=== PATIENT | female | born 1995 | race Caucasian/White ===

== ENCOUNTER → 2017-05-20 15:00 | Emergency (ER) | payer OTHER ==
[2017-05-20 15:10] VITALS: BP 141/61
--- NOTE | 2017-05-20 17:37 | ED ---
Complex/Multi-Sys Presentation - HPI Summary HPI Summary: 22 female presents with complaints of feeling very tired/exhausted and feeling drained for the past couple weeks with worsening symptoms over the past couple of days. Patient denies any other symptoms. States she has seasonal allergies and is having some scratchy throat symptoms. Denies fever/chills and severe sore throat. States she has been falling asleep often, fell asleep in class today. Denies cough, chest pain, difficulty breathing and abdominal pain. She does admit to having a history of anemia. States her bathroom at home has increased the amount of moisture in it and the fan doesn't work well was concerned of possible mold. However no other symptoms and does not know if there is mold in her house or not. No PMHx besides hypothyroid that she is not currently medicated for. Admits to a lot of stress with juggling school and her child without her mother. No urinary or genitalia complaints. - History Of Current Complaint Chief Complaint: EDGeneral Hx Obtained From: Patient Onset/Duration: Sudden Onset, Lasting Weeks Timing: Constant Severity Currently: Mild Severity Initially: Mild Aggravating Factor(s): none Alleviating Factor(s): none Associated Signs And Symptoms: Negative: SOB, Cough, Wheezing, Chest Pain, Nausea, Vomiting, Abdominal Pain, Back Pain, Recent Trauma, Remote Trauma - Allergies/Home Medications Allergies/Adverse Reactions: Allergies Allergy/AdvReac Type Severity Reaction Status Date / Time No Known Drug Allergy Allergy Unknown Verified 05/20/17 15:53 Reaction Details PMH/Surg Hx/FS Hx/Imm Hx Endocrine/Hematology History: Reports: Hx Thyroid Disease, Hx Anemia Cardiovascular History: Denies: Hx Hypertension Respiratory History: Denies: Hx Asthma - Surgical History Surgery Procedure, Year, and Place: none - Immunization History Immunizations Up to Date: Yes Infectious Disease History: No Infectious Disease History: Denies: Traveled Outside the [place] in Last 30 Days - Family History Known Family History: Positive: None - Social History Alcohol Use: None Substance Use Type: Reports: None Smoking Status (MU): Unknown if Ever Smoked Review of Systems Constitutional: Negative Eyes: Negative ENT: Negative Cardiovascular: Negative Respiratory: Negative Gastrointestinal: Negative Musculoskeletal: Negative Skin: Negative Neurological: Negative Positive: Other - fatigue All Other Systems Reviewed And Are Negative: Yes Physical Exam Triage Information Reviewed: Yes Vital Signs On Initial Exam: Initial Vitals Temp Pulse Resp BP Pulse Ox 98.5 F 79 20 141/61 96 05/20/17 15:06 05/20/17 15:06 05/20/17 15:06 05/20/17 15:06 05/20/17 15:06 Vital Signs Reviewed: Yes Appearance: Positive: Well-Appearing, No Pain Distress, Well-Nourished Skin: Positive: Warm, Skin Color Reflects Adequate Perfusion, Dry. Negative: Numb, Cyanosis @, Diaphoretic Head/Face: Positive: Normal Head/Face Inspection Eyes: Positive: Normal, Conjunctiva Clear ENT: Positive: Normal ENT inspection, Hearing grossly normal, Pharynx normal, Pharyngeal erythema, TMs normal. Negative: Tonsillar swelling, Tonsillar exudate, Trismus, Muffled/hoarse voice, Other Neck: Positive: Supple, Nontender, No Lymphadenopathy Respiratory/Lung Sounds: Positive: Clear to Auscultation, Breath Sounds Present. Negative: Rales, Rhonchi, Wheezes Cardiovascular: Positive: Normal, RRR, Pulses are Symmetrical in both Upper and Lower Extremities. Negative: Murmur, Rub Abdomen Description: Positive: Nontender, No Organomegaly, Soft. Negative: Bruit, CVA Tenderness (R), CVA Tenderness (L), Distended, Guarding, McBurney's Point Tenderness, Splenomegaly Bowel Sounds: Positive: Present Musculoskeletal: Positive: Normal, Strength/ROM Intact Neurological: Positive: Normal, Sensory/Motor Intact, Alert, Oriented to Person Place, Time, CN Intact II-III, Reflexes Intact, NV Bundle Intact Distally, Normal Gait Psychiatric: Positive: Affect/Mood Appropriate AVPU Assessment: Alert - Gustavo Coma Scale Best Eye Response: 4 - Spontaneous Best Motor Response: 6 - Obeys Commands Best Verbal Response: 5 - Oriented Diagnostics - Vital Signs Vital Signs Temp Pulse Resp BP Pulse Ox 05/20/17 15:09 98.5 F 102 20 141/61 97 05/20/17 15:06 98.5 F 79 20 141/61 96 - Laboratory Result Diagrams: 05/20/17 17:29 05/20/17 17:29 Lab Statement: Any lab studies that have been ordered have been reviewed, and results considered in the medical decision making process. Complex Multi-Symp Course/Dx Course Of Treatment: CBC CMP and mono ordered to rule out mono and anemia. very slightly anemic. monospot was positive. will await EBV results. patient is not aware if she has had mono in the past. fluids, rest and follow up. tylenol/ ibuprofen pain. wait for acute mono infection results. aware of worsening signs and symptoms. also told to take iron pill every other day. - Diagnoses Differential Diagnoses/HQI/PQRI: Other - mono, anemia, depression Provider Diagnoses: Fatigue Discharge - Discharge Plan Condition: Stable Disposition: HOME Patient Education Materials: Fatigue (ED) Referrals: Non Staff,Doctor [Primary Care Provider] - Additional Instructions: Follow up with primary care provider for further work up and evaluation if symptoms persist. Drink plenty of fluids and get plenty of rest. If new symptoms appear or symptoms persist please return or seek medical attention promptly.
[2017-05-20 17:51] LABS: Hematocrit 36 % (35-47); Hemoglobin 11.1 g/dl (12.0-16.0); Mean Corpuscular HGB Conc 31 g/dl (31-36); Mean Corpuscular Hemoglobin 22 pg (27-31); Mean Corpuscular Volume 70 fL (80-97); Mean Platelet Volume 9 um3 (7.4-10.4); Red Blood Count 5.12 10^6/ul (4.0-5.4); Red Cell Distribution Width 17 % (10.5-15); White Blood Count 9.1 10^3/ul (3.5-10.8)
[2017-05-20 17:53] LABS: Comments Flag Yes
[2017-05-20 17:54] LABS: Add Diff/Slide Review? Slide Review Added
[2017-05-20 18:01] LABS: Mono Internal Control QC Line Present
[2017-05-20 18:13] LABS: Albumin 4.1 g/dL (3.2-5.2); BUN/Creatinine Ratio 11.1 (8-20); Calcium 9.5 mg/dL (8.6-10.3); EGFR Non-African American 99.5 (>60); Globulin 3.8 g/dL (2-4); Potassium 3.8 mmol/L (3.5-5.0); Total Bilirubin 0.3 mg/dL (0.2-1.0); Total Protein 7.9 g/dL (6.4-8.9)
== END | disposition home or self-care (01) ==
LOC: ED 15:00
DX: R53.83 Other fatigue (principal); E03.9 Hypothyroidism, unspecified
CPT/HCPCS: 36415; 80053; 85025; 86308; 86663; 99282

== ENCOUNTER 2017-07-21 10:27 | Emergency (ER) | payer OTHER, MEDICAID ==
[2017-07-21] MEDS ORDERED: Ondansetron INJ* 2 MG/ML VIAL IV ONE (11:13)
[2017-07-21] MEDS ORDERED: Ketorolac INJ* 30 MG/ML 1 ML VIAL IV ONE (11:13)
[2017-07-21] MEDS: NS 0.9% 1000 ML* 2,000 ML IV ONE (11:32)
[2017-07-21 11:49] LABS: Hematocrit 37 % (35-47); Hemoglobin 11.4 g/dl (12.0-16.0); Mean Corpuscular HGB Conc 31 g/dl (31-36); Mean Corpuscular Hemoglobin 21 pg (27-31); Mean Platelet Volume 8 um3 (7.4-10.4); Red Blood Count 5.36 10^6/ul (4.0-5.4); Red Cell Distribution Width 17 % (10.5-15)
[2017-07-21 11:51] LABS: Comments Flag Yes; Mean Corpuscular Volume 69 fL (80-97)
[2017-07-21 12:00] LABS: Urine Bilirubin Negative (Negative); Urine Glucose Negative (Negative); Urine Nitrite Negative (Negative)
[2017-07-21 12:01] LABS: Albumin 4.3 g/dL (3.2-5.2); BUN/Creatinine Ratio 10.3 (8-20); Calcium 9.3 mg/dL (8.6-10.3); EGFR African American 136.7 (>60); EGFR Non-African American 106.3 (>60); Globulin 3.5 g/dL (2-4); Potassium 3.7 mmol/L (3.5-5.0); Total Protein 7.8 g/dL (6.4-8.9)
[2017-07-21 12:02] LABS: C Reactive Protein 10.96 mg/L (< 5.00); Total Bilirubin 0.5 mg/dL (0.2-1.0)
[2017-07-21 12:06] LABS: Urine Bacteria Absent (Absent)
[2017-07-21] MEDS ORDERED: Lidocaine 2% VISCOUS* 15 ML UDC PO ONE (12:20)
[2017-07-21] MEDS ORDERED: Al Hydrox/Mg Hydrox/Simet LIQ* 30 ML UDC PO ONE (12:20)
[2017-07-21] MEDS ORDERED: Pantoprazole IV* 40 MG IV ONE (12:21)
--- NOTE | 2017-07-21 12:46 | RAD ---
Indication: Pelvic pain. Real-time sonography of the pelvis was performed utilizing endovaginal technique. The uterus measures 7.4 x 3.3 x 4.3 cm. Endometrial echo measures 5 mm. Right ovary measures 3.3 x 2.4 x 1.9 cm. Left ovary measures 2.7 x 1.9 x 1.8 cm. Doppler interrogation demonstrates flow in both ovaries. IMPRESSION: Unremarkable pelvic ultrasound.
--- NOTE | 2017-07-21 12:46 | RAD ---
Indication: Right lower quadrant pain. Graded compression sonography of the right lower quadrant was performed utilizing a high frequency linear transducer. There is no evidence of tubular fluid-filled structure to suggest appendicitis. Normal appendix is not visualized. IMPRESSION: Appendix not visualized.
--- NOTE | 2017-07-21 12:48 | RAD ---
Indication: Right flank pain. Real-time sonography of the right kidney was performed. The right kidney measures 9.6 x 3.5 x 4.2 cm. There is mild fullness of the right renal collecting system. Bilateral ureteral jets are identified. IMPRESSION: Mild hydronephrosis of the right kidney. The right ureteral jet is however identified.
--- NOTE | 2017-07-21 13:53 | RAD ---
CLINICAL HISTORY: Right flank pain, mild hydronephrosis on ultrasound COMPARISON: Ultrasound dated July 21, 2017 TECHNIQUE: Multiple contiguous axial CT scans were obtained of the abdomen and pelvis, without intravenous contrast enhancement. Coronal and sagittal multiplanar reformations are submitted for review. Oral contrast was not administered. FINDINGS: The study is limited by the lack of intravenous contrast. This limits evaluation of the solid organs and vasculature. LUNG BASES: The lung bases are clear. LIVER: The liver is normal in shape, size, contour, and attenuation. BILE DUCTS: There is no intrahepatic or extrahepatic biliary dilatation. GALLBLADDER: The gallbladder is normal, without pericholecystic inflammatory change. PANCREAS: The pancreas is normal, without mass or ductal dilatation. SPLEEN: Normal in size and appearance. UPPER GI TRACT: Evaluation of the gastrointestinal tract is limited by incomplete gastric distention. The upper GI tract is unremarkable. SMALL BOWEL AND MESENTERY: The small bowel is normal in contour, course, and caliber. There is no obstruction or dilatation. COLON: The colon is normal in contour, course, caliber. There is no pericolonic inflammatory change. There is a tubular, vermiform, hollow viscus that is blind ending, and originates from the cecum, consistent with a normal appendix. There is no periappendiceal inflammatory change. ADRENALS: Normal bilaterally. KIDNEYS: There is mild to moderate right pelviectasis and hydroureter, with a 0.5 cm calculus of the proximal right ureter. There are nonspecific left renal calyceal stones. BLADDER: The bladder is smooth in contour. PELVIC ORGANS: The uterus and adnexa are grossly normal for technique. AORTA: The aorta is normal. IVC: Unremarkable LYMPH NODES: There is no lymphadenopathy by size criteria. ABDOMINAL WALL: There is no evidence for abdominal wall hernia. BONES AND SOFT TISSUES: The bones and soft tissues are unremarkable. OTHER: None IMPRESSION: BILATERAL NEPHROLITHIASIS, INCLUDING A 0.5 CM PROXIMAL RIGHT URETERAL CALCULUS WITH MILD TO MODERATE HYDRONEPHROSIS
--- NOTE | 2017-07-21 15:50 | ED ---
Aleksandra Zhou Alfonso, scribed for Celina Brooks MD on 07/21/17 at 1044 . Abdominal Pain/Female - HPI Summary HPI Summary: This patient is a 22 year old F presenting to [facility] with a chief complaint of right sided abdominal pain since earlier this morning. The pain radiate to her back. The patient rates the pain 9/10 in severity. Symptoms aggravated by deep breaths. Symptoms alleviated by nothing. Patient reports diaphoresis, and nausea. Patient denies dysuria, fever, and vomiting. She began a vegan diet two weeks ago. She denies abdominal PSHx. A4. Next menstrual cycle expected in 9 days. PMHx includes ovarian cyst. - History of Current Complaint Chief Complaint: EDAbdPain Stated Complaint: LOWER RT ABD PAIN Time Seen by Provider: 07/21/17 10:39 Hx Obtained From: Patient Onset/Duration: Sudden Onset, Lasting Hours, Still Present Timing: Constant Severity Initially: Severe Severity Currently: Severe Pain Intensity: 9 Pain Scale Used: 0-10 Numeric Location: Other - right sided Radiates: Yes Radiates to: Back Aggravating Factor(s): Deep Breaths Alleviating Factor(s): Nothing Associated Signs and Symptoms: Positive: Other: - diaphoresis, and nausea. Patient denies dysuria, fever, and vomiting Allergies/Adverse Reactions: Allergies Allergy/AdvReac Type Severity Reaction Status Date / Time No Known Drug Allergy Allergy Unknown Verified 05/20/17 15:53 Reaction Details PMH/Surg Hx/FS Hx/Imm Hx Endocrine/Hematology History: Reports: Hx Thyroid Disease, Hx Anemia Cardiovascular History: Denies: Hx Hypertension Respiratory History: Denies: Hx Asthma History: Reports: Other Problems/Disorders - ovarian cyst - Surgical History Surgery Procedure, Year, and Place: none Infectious Disease History: No Infectious Disease History: Denies: Traveled Outside the [place] in Last 30 Days - Family History Known Family History: Positive: Other - Ovarian cyst - Social History Occupation: Student - [employer] Alcohol Use: None Substance Use Type: Reports: None Smoking Status (MU): Unknown if Ever Smoked Review of Systems Positive: Skin Diaphoresis. Negative: Fever Positive: Abdominal Pain, Nausea. Negative: Vomiting Negative: dysuria All Other Systems Reviewed And Are Negative: Yes Physical Exam Triage Information Reviewed: Yes Vital Signs On Initial Exam: Initial Vitals Temp Pulse Resp BP Pulse Ox 97.6 F 81 20 144/84 99 07/21/17 10:30 07/21/17 10:30 07/21/17 10:30 07/21/17 10:30 07/21/17 10:30 Vital Signs Reviewed: Yes Appearance: Positive: Well-Appearing, No Pain Distress Skin: Positive: Warm, Skin Color Reflects Adequate Perfusion, Dry Eyes: Positive: EOMI, DEB ENT: Positive: Pharynx normal, TMs normal Neck: Positive: Supple, Nontender Respiratory/Lung Sounds: Positive: Clear to Auscultation, Breath Sounds Present. Negative: Rales, Rhonchi, Wheezes Cardiovascular: Positive: RRR, Other - No gallop. Negative: Murmur, Rub Abdomen Description: Positive: Soft, Other: - Right flank tenderness. Right suprapubic tenderness. No rebound.. Negative: Distended, Guarding Bowel Sounds: Positive: Present Musculoskeletal: Positive: Strength/ROM Intact. Negative: Edema Left, Edema Right Neurological: Positive: Sensory/Motor Intact, Alert, Oriented to Person Place, Time, CN Intact II-III - 2-12 Psychiatric: Positive: Affect/Mood Appropriate Diagnostics - Vital Signs Vital Signs Temp Pulse Resp BP Pulse Ox 07/21/17 10:30 97.6 F 81 20 144/84 99 - Laboratory Lab Results: Lab Results 07/21/17 07/21/17 07/21/17 Range/Units 11:22 11:35 11:35 WBC 6.0 (3.5-10.8) 10^3/ul RBC 5.36 (4.0-5.4) 10^6/ul Hgb 11.4 L (12.0-16.0) g/dl Hct 37 (35-47) % MCV 69 L (80-97) fL MCH 21 L (27-31) pg MCHC 31 (31-36) g/dl RDW 17 H (10.5-15) % Plt Count 305 (150-450) 10^3/ul MPV 8 (7.4-10.4) um3 Neut % (Auto) 63.5 (38-83) % Lymph % (Auto) 28.0 (25-47) % Lewis % (Auto) 7.4 (1-9) % Eos % (Auto) 0.9 (0-6) % Baso % (Auto) 0.2 (0-2) % Absolute Neuts (auto) 3.8 (1.5-7.7) 10^3/ul Absolute Lymphs (auto) 1.7 (1.0-4.8) 10^3/ul Absolute Monos (auto) 0.4 (0-0.8) 10^3/ul Absolute Eos (auto) 0.1 (0-0.6) 10^3/ul Absolute Basos (auto) 0 (0-0.2) 10^3/ul Absolute Nucleated RBC 0.01 10^3/ul Nucleated RBC % 0.1 Sodium 139 (133-145) mmol/L Potassium 3.7 (3.5-5.0) mmol/L Chloride 104 (101-111) mmol/L Carbon Dioxide 29 (22-32) mmol/L Anion Gap 6 (2-11) mmol/L BUN 7 (6-24) mg/dL Creatinine 0.68 (0.51-0.95) mg/dL Est GFR ( Amer) 136.7 (>60) Est GFR (Non-Af Amer) 106.3 (>60) BUN/Creatinine Ratio 10.3 (8-20) Glucose 86 (70-100) mg/dL Calcium 9.3 (8.6-10.3) mg/dL Total Bilirubin 0.50 (0.2-1.0) mg/dL AST 21 (13-39) U/L ALT 26 (7-52) U/L Alkaline Phosphatase 104 (34-104) U/L C-Reactive Protein 10.96 H (< 5.00) mg/L Total Protein 7.8 (6.4-8.9) g/dL Albumin 4.3 (3.2-5.2) g/dL Globulin 3.5 (2-4) g/dL Albumin/Globulin Ratio 1.2 (1-3) Beta HCG, Quant 0.65 mIU/mL Urine Color [place] Urine Appearance Cloudy Urine pH 5 (5-9) Ur Specific [place] 1.025 (1.010-1.030) Urine Protein 1+(30 mg/dl) H (Negative) Urine Ketones Negative (Negative) Urine Blood 3+ H (Negative) Urine Nitrate Negative (Negative) Urine Bilirubin Negative (Negative) Urine Urobilinogen Negative (Negative) Ur Leukocyte Esterase 2+ H (Negative) Urine WBC (Auto) 2+(11-20/hpf) H (Absent) Urine RBC (Auto) 3+(>10/hpf) H (Absent) Ur Squamous Epith Cells Present H (Absent) Urine Bacteria Absent (Absent) Urine Glucose Negative (Negative) Result Diagrams: 07/21/17 11:35 07/21/17 11:35 Lab Statement: Any lab studies that have been ordered have been reviewed, and results considered in the medical decision making process. - CT A/P CT Interpretation Completed By: Radiologist - BILATERAL NEPHROLITHIASIS, INCLUDING A 0.5 CM PROXIMAL RIGHT URETERAL CALCULUS WITH MILD TO MODERATE HYDRONEPHROSIS. ED physician has reviewed this radiology report and agrees. - Additional Comments Diagnostic Additional Comments: Renal US reveals, per radiologist, Mild hydronephrosis of the right kidney. The right ureteral jet is however identified. ED physician has reviewed this radiology report and agrees. Transvaginal US reveals, per radiologist, Unremarkable pelvic ultrasound. ED physician has reviewed this radiology report and agrees. Abdomen US reveals, per radiologist, Appendix not visualized. ED physician has reviewed this radiology report and agrees. Abdominal Pain Fem Course/Dx - Course Course Of Treatment: 22 yo female with right suprapubic and flank pain with 5mm ureteral stone and urine suspicious for uti. ultrasound does show ureteral jets. Pt given 2gms of ceftriaxone and case discussed with Dr. Moreira, pt sent home with cipro, flomax, naprosyn and a very short course of narcotics. She will call office to make an appt for early next week and knows to return for fevers inability to keep meds down - Diagnoses Provider Diagnoses: Right ureteral stone, UTI (urinary tract infection) Discharge - Discharge Plan Condition: Stable Disposition: HOME Prescriptions: Ciprofloxacin TAB* [Cipro 500 MG TAB*] 500 mg PO BID #14 tab HYDROcodone/ACETAMIN 5-325 MG* [[place] 5-325 TAB*] 1 tab PO Q8H PRN #9 tab MDD 3 PRN Reason: Pain Naproxen [Naprosyn 500 mg] 500 mg PO BID PRN #14 tab PRN Reason: Pain Tamsulosin CAP* [Flomax CAP*] 0.4 mg PO DAILY #7 cap Referrals: Moraima Crowe MD [Primary Care Provider] - 3 Days The documentation as recorded by the Aleksandra hardin Alfonso accurately reflects the service I personally performed and the decisions made by me, Celina Brooks MD.
[2017-07-21 16:05] VITALS: BP 105/70
--- NOTE | 2017-07-23 09:11 | ED ---
Progress - Progress Note Progress Note: Pt's visit note indicates: "22 yo female with right suprapubic and flank pain with 5mm ureteral stone and urine suspicious for uti. ultrasound does show ureteral jets. Pt given 2gms of ceftriaxone and case discussed with Dr. Moreira , pt sent home with cipro, flomax, naprosyn and a very short course of narcotics. She will call office to make an appt for early next week and knows to return for fevers inability to keep meds down" Urine cx reveals no growth. Given the finding of uretral stone, location of pain and consult with Dr. Moreira, will have pt continue cipro. Will fwd results to Dr. Moreira. salma Rubio clerk, aware. Course/Dx - Course Course Of Treatment: 22 yo female with right suprapubic and flank pain with 5mm ureteral stone and urine suspicious for uti. ultrasound does show ureteral jets. Pt given 2gms of ceftriaxone and case discussed with Dr. Moreira, pt sent home with cipro, flomax, naprosyn and a very short course of narcotics. She will call office to make an appt for early next week and knows to return for fevers inability to keep meds down - Diagnoses Provider Diagnoses: Right ureteral stone, UTI (urinary tract infection)
== END 2017-07-21 16:04 | disposition home or self-care (01) ==
LOC: ED 10:27
DX: N20.1 Calculus of ureter (principal); N39.0 Urinary tract infection, site not specified; R10.84 Generalized abdominal pain
CPT/HCPCS: 36415; 74176; 76705; 76775; 76830; 80053; 81003; 81015; 84702; 85025; 86140; 87086; 96374; 96375; 99283; J0696; J1885; J2405

== ENCOUNTER 2017-07-22 10:50 | Emergency (ER) | payer OTHER, MEDICAID ==
[2017-07-22 11:24] VITALS: BP 104/82
[2017-07-22 11:52] LABS: Hematocrit 33 % (35-47); Hemoglobin 10.4 g/dl (12.0-16.0); Mean Corpuscular HGB Conc 32 g/dl (31-36); Mean Corpuscular Hemoglobin 22 pg (27-31); Mean Platelet Volume 8 um3 (7.4-10.4); Red Blood Count 4.75 10^6/ul (4.0-5.4); Red Cell Distribution Width 17 % (10.5-15)
[2017-07-22 11:53] LABS: Comments Flag Yes
[2017-07-22 11:54] LABS: Mean Corpuscular Volume 69 fL (80-97)
[2017-07-22] MEDS ORDERED: Ketorolac INJ* 30 MG/ML 1 ML VIAL IV PUSH ONE (12:05)
[2017-07-22 12:10] LABS: Anion Gap 5 mmol/L (2-11); BUN/Creatinine Ratio 12.8 (8-20); Blood Urea Nitrogen 10 mg/dL (6-24); CO2 Carbon Dioxide 25 mmol/L (22-32); Calcium 8.5 mg/dL (8.6-10.3); Chloride 108 mmol/L (101-111); EGFR African American 116.7 (>60); EGFR Non-African American 90.7 (>60); Glucose 93 mg/dL (70-100); Potassium 3.8 mmol/L (3.5-5.0); Sodium 138 mmol/L (133-145)
[2017-07-22 12:40] LABS: Urine Bilirubin Negative (Negative); Urine Glucose Negative (Negative); Urine Nitrite Negative (Negative)
[2017-07-22 12:53] LABS: Urine Bacteria Absent (Absent)
[2017-07-22] MEDS ORDERED: cefTRIAXone(*) 1 GM in NS 0.9% 50 ML* 50 ML IVPB ONE (13:17)
--- NOTE | 2017-07-22 14:36 | RAD ---
Indication: Flank pain. Proximal RIGHT ureteral stone on July 21, 2017 CT. Comparison: July 21, 2017 CT. Technique: Ultrasound kidneys and urinary bladder. Report: 9.9 x 4.6 x 5.8 cm RIGHT kidney with normal cortical echogenicity demonstrates moderate pelvicaliectasis. No conspicuous RIGHT intrarenal collecting system stones or focal renal lesions. Negative for perinephric fluid. 10.7 x 4.3 x 4.4 cm LEFT kidney demonstrates normal cortical echogenicity and a 0.5 cm mid pole calyceal stone. Negative for LEFT hydronephrosis. Negative for focal LEFT renal lesions. 220 mm estimated prevoid urinary bladder volume. Upper normal 3.6 mm bladder wall. No focal bladder lesions or stones evident. Bladder contents are grossly anechoic. 25 mL estimated post void residual volume. Bilateral ureteral jets documented. 0.5 cm shadowing stone visualized at the far distal RIGHT ureter. IMPRESSION: 1. Moderate RIGHT hydronephrosis is traced to a 0.5 cm shadowing stone at the far distal RIGHT ureter with significant distal propagation compared with the CT of one day prior. 2. Nonobstructing 0.5 cm stone midpole LEFT kidney. 3. Bilateral ureteral jets documented. 4. 25 mL postvoid residual volume in the urinary bladder.
--- NOTE | 2017-07-24 08:57 | PN ---
Progress Note - Progress Note Date of Service: 07/22/17 Note: No growth of clinically significant organisms on urine culture. No further action required at this time.
--- NOTE | 2017-07-30 15:07 | ED ---
Aleksandra Zhou Alfonso scribed for Bautista Hughes MD on 07/22/17 at 1306 . Abdominal Pain/Female - HPI Summary HPI Summary: This patient is a 22 year old F presenting to [facility] with a chief complaint of right flank pain worse since yesterday. The CC is described as pressured and aching. The patient rates the pain 7/10 in severity. Symptoms aggravated by urination, deep breaths, and position. Symptoms alleviated by nothing. Patient reports dysuria and urinary retention. Patient denies vomiting. She began a vegan diet two weeks ago. She denies abdominal PSHx. A4. Next menstrual cycle expected in 8 days. PMHx includes ovarian cyst. - History of Current Complaint Chief Complaint: EDUrogenitalProblems Stated Complaint: UNABLE TO URINATE Time Seen by Provider: 07/22/17 11:42 Hx Obtained From: Patient Onset/Duration: Sudden Onset, Worse Since - yesterday Timing: Constant Severity Initially: Severe Severity Currently: Severe Pain Intensity: 7 Pain Scale Used: 0-10 Numeric Location: Flank - R Aggravating Factor(s): Other: - urination, deep breaths, and position. Alleviating Factor(s): Nothing Associated Signs and Symptoms: Positive: Other: - dysuria and urinary retention. Patient denies vomiting. Allergies/Adverse Reactions: Allergies Allergy/AdvReac Type Severity Reaction Status Date / Time Milk-related Compounds Allergy Constipatio Verified 07/22/17 11:20 n squask Allergy Anaphylatic Uncoded 07/22/17 11:21 Shock PMH/Surg Hx/FS Hx/Imm Hx Endocrine/Hematology History: Reports: Hx Thyroid Disease, Hx Anemia Cardiovascular History: Denies: Hx Hypertension Respiratory History: Denies: Hx Asthma History: Reports: Other Problems/Disorders - ovarian cyst - Surgical History Surgery Procedure, Year, and Place: none Infectious Disease History: Yes Infectious Disease History: Denies: Traveled Outside the [place] in Last 30 Days - Family History Known Family History: Positive: None, Other - Ovarian cyst - Social History Alcohol Use: None Substance Use Type: Reports: None Smoking Status (MU): Unknown if Ever Smoked Review of Systems Negative: Fever, Chills Negative: Erythema Negative: Sore Throat Negative: Chest Pain Negative: Shortness Of Breath, Cough Positive: Abdominal Pain - right flank. Negative: Vomiting, Nausea Positive: dysuria, other - Urinary retention. Negative: hematuria Negative: Myalgia, Edema Negative: Rash Neurological: Other - Negative dizziness All Other Systems Reviewed And Are Negative: Yes Physical Exam Triage Information Reviewed: Yes Vital Signs On Initial Exam: Initial Vitals Temp Pulse Resp BP Pulse Ox 97.5 F 86 20 104/82 99 07/22/17 11:21 07/22/17 11:21 07/22/17 11:21 07/22/17 11:21 07/22/17 11:21 Vital Signs Reviewed: Yes Appearance: Positive: Well-Appearing, No Pain Distress Skin: Positive: Warm, Dry Head/Face: Positive: Normal Head/Face Inspection Eyes: Positive: Conjunctiva Clear Neck: Positive: Other: - Musculoskeletal ROM normal neck. (-) JVD, (-) Stridor, (-) Tracheal deviation, (-) Cervical adenopathy Respiratory/Lung Sounds: Positive: Other - Effort normal. (-) Respiratory distress, (-) Wheezes, (-) Rales Cardiovascular: Positive: RRR, Other - Heart sounds normal; Intact distal pulses ; The pedal pulses are 2+ and symmetric. Radial pulses are 2+ and symmetric. (- ) Murmur Abdomen Description: Positive: Soft, Other: - Right CVA tenderness. No rebound. Negative: Distended, Guarding Musculoskeletal: Negative: Edema Left, Edema Right Neurological: Positive: Alert, Oriented to Person Place, Time Psychiatric: Positive: Affect/Mood Appropriate - [place] Coma Scale Coma Scale Total: 15 Diagnostics - Vital Signs Vital Signs Temp Pulse Resp BP Pulse Ox 07/22/17 11:21 97.5 F 86 20 104/82 99 - Laboratory Lab Results: Lab Results 07/22/17 07/22/17 07/22/17 Range/Units 11:39 11:39 11:45 WBC 6.0 (3.5-10.8) 10^3/ul RBC 4.75 (4.0-5.4) 10^6/ul Hgb 10.4 L (12.0-16.0) g/dl Hct 33 L (35-47) % MCV 69 L (80-97) fL MCH 22 L (27-31) pg MCHC 32 (31-36) g/dl RDW 17 H (10.5-15) % Plt Count 269 (150-450) 10^3/ul MPV 8 (7.4-10.4) um3 Neut % (Auto) 66.3 (38-83) % Lymph % (Auto) 25.8 (25-47) % [place] % (Auto) 6.6 (1-9) % Eos % (Auto) 0.9 (0-6) % Baso % (Auto) 0.4 (0-2) % Absolute Neuts (auto) 4.0 (1.5-7.7) 10^3/ul Absolute Lymphs (auto) 1.6 (1.0-4.8) 10^3/ul Absolute Monos (auto) 0.4 (0-0.8) 10^3/ul Absolute Eos (auto) 0.1 (0-0.6) 10^3/ul Absolute Basos (auto) 0 (0-0.2) 10^3/ul Absolute Nucleated RBC 0 10^3/ul Nucleated RBC % 0.1 Sodium 138 (133-145) mmol/L Potassium 3.8 (3.5-5.0) mmol/L Chloride 108 (101-111) mmol/L Carbon Dioxide 25 (22-32) mmol/L Anion Gap 5 (2-11) mmol/L BUN 10 (6-24) mg/dL Creatinine 0.78 (0.51-0.95) mg/dL Est GFR ( Amer) 116.7 (>60) Est GFR (Non-Af Amer) 90.7 (>60) BUN/Creatinine Ratio 12.8 (8-20) Glucose 93 (70-100) mg/dL Calcium 8.5 L (8.6-10.3) mg/dL Beta HCG, Quant < 0.60 mIU/mL Urine Color Yellow Urine Appearance Clear Urine pH 5 (5-9) Ur Specific [place] 1.035 H (1.010-1.030) Urine Protein Negative (Negative) Urine Ketones Negative (Negative) Urine Blood 3+ H (Negative) Urine Nitrate Negative (Negative) Urine Bilirubin Negative (Negative) Urine Urobilinogen Negative (Negative) Ur Leukocyte Esterase 1+ H (Negative) Urine WBC (Auto) 3+(>20/hpf) H (Absent) Urine RBC (Auto) 3+(>10/hpf) H (Absent) Ur Squamous Epith Cells Present H (Absent) Urine Bacteria Absent (Absent) Urine Glucose Negative (Negative) Result Diagrams: 07/22/17 11:39 07/22/17 11:39 Lab Statement: Any lab studies that have been ordered have been reviewed, and results considered in the medical decision making process. - Additional Comments Diagnostic Additional Comments: US abdomen/bladder reveals, per radiologist, 1. Moderate RIGHT hydronephrosis is traced to a 0.5 cm shadowing stone at the far distal RIGHT ureter with significant distal propagation compared with the CT of one day prior. 2. Nonobstructing 0.5 cm stone midpole LEFT kidney. 3. Bilateral ureteral jets documented. 4. 25 mL postvoid residual volume in the urinary bladder. ED physician has reviewed this radiology report and agrees. Re-Evaluation - Re-Evaluation First Eval Re-Evaluation Time: 14:57 Change: Improved Comment: The patient is currently pain free. Discussed plan for discharge and urology follow up. She is adamant about having a procedure to remove the stone. I told her I would consult urology, as was the original plan since yesterday. Abdominal Pain Fem Course/Dx - Course Course Of Treatment: This patient is a 22 year old F presenting to [facility] with a chief complaint of right flank pain worse since yesterday. The CC is described as pressured and aching. The patient rates the pain 7/10 in severity. Symptoms aggravated by urination, deep breaths, and position. Symptoms alleviated by nothing. Patient reports dysuria and urinary retention. Patient denies vomiting. She began a vegan diet two weeks ago. She denies abdominal PSHx. A4. Next menstrual cycle expected in 8 days. PMHx includes ovarian cyst. US abdomen/bladder reveals, per radiologist, 1. Moderate RIGHT hydronephrosis is traced to a 0.5 cm shadowing stone at the far distal RIGHT ureter with significant distal propagation compared with the CT of one day prior. 2. Nonobstructing 0.5 cm stone midpole LEFT kidney. 3. Bilateral ureteral jets documented. 4. 25 mL postvoid residual volume in the urinary bladder. ED physician has reviewed this radiology report and agrees. The patient is currently pain free. Discussed plan for discharge and urology follow up. She is adamant about having a procedure to remove the stone. I told her I would consult urology, as was the original plan since yesterday. Consulted Dr. Moreira (urologist) who stated surgery is not indicated and to have the pt call for an appointment within the week. Patient will be discharged with prescription for toradol and follow up from PCP and urology. The patient is agreeable with this plan. - Diagnoses Provider Diagnoses: Noncompliance with medications, Urethral stone - Provider Notifications Discussed Care Of Patient With: Igor Moreira Time Discussed With Above Provider: 14:59 Instructed by Provider To: Other - Consulted Dr. Moreira (urologist) who stated surgery is not indicated and to have the pt call for an appointment within the week. Discharge - Discharge Plan Condition: Stable Disposition: HOME Prescriptions: Ketorolac TAB * [Toradol TAB *] 10 mg PO Q8H PRN #10 tab PRN Reason: Pain - Moderate To Severe Patient Education Materials: Kidney Stones (ED) Referrals: Moraima Crowe MD [Primary Care Provider] - 3 Days Igor Moreira MD [Medical Doctor] - 2 Days Additional Instructions: RETURN TO THE EMERGENCY DEPARTMENT FOR CHANGING OR WORSENING SYMPTOMS. The documentation as recorded by the Aleksandra hardin Alfonso accurately reflects the service I personally performed and the decisions made by , Bautista Hughes MD.
== END 2017-07-22 15:41 | disposition home or self-care (01) ==
LOC: ED 10:50
DX: N21.1 Calculus in urethra (principal); R10.84 Generalized abdominal pain; R30.0 Dysuria; R33.9 Retention of urine, unspecified; Z91.14 Patient's other noncompliance with medication regimen
CPT/HCPCS: 36415; 76770; 80048; 81003; 81015; 84702; 85025; 87077; 87086; 96374; 99283; J1885

== ENCOUNTER 2017-10-05 03:50 | Inpatient (IN) | payer OTHER, MEDICAID ==
[2017-10-05 05:18] LABS: Hematocrit 36 % (35-47); Hemoglobin 11.4 g/dl (12.0-16.0); Mean Corpuscular HGB Conc 32 g/dl (31-36); Mean Corpuscular Hemoglobin 22 pg (27-31); Mean Corpuscular Volume 71 fL (80-97); Mean Platelet Volume 9 um3 (7.4-10.4); Red Blood Count 5.11 10^6/ul (4.0-5.4); Red Cell Distribution Width 17 % (10.5-15); White Blood Count 5.2 10^3/ul (3.5-10.8)
[2017-10-05 05:21] LABS: Add Diff/Slide Review? Slide Review Added; Comments Flag Yes
[2017-10-05 05:26] LABS: Urine Bacteria Absent (Absent); Urine Bilirubin Negative (Negative); Urine Glucose Negative (Negative); Urine Nitrite Negative (Negative)
[2017-10-05 05:30] LABS: ALT 15 U/L (7-52); AST 16 U/L (13-39); Albumin 4.1 g/dL (3.2-5.2); Alcohol < 10 mg/dL (<10); Alkaline Phosphatase 83 U/L (34-104); Anion Gap 9 mmol/L (2-11); BUN/Creatinine Ratio 10.3 (8-20); Benzodiazepine Urine Screen None Detected (None Detect); Blood Urea Nitrogen 7 mg/dL (6-24); CO2 Carbon Dioxide 23 mmol/L (22-32); Calcium 8.9 mg/dL (8.6-10.3); Chloride 105 mmol/L (101-111); EGFR African American 136.7 (>60); EGFR Non-African American 106.3 (>60); Globulin 3.3 g/dL (2-4); Glucose 105 mg/dL (70-100); Potassium 3.4 mmol/L (3.5-5.0); Salicylate < 2.50 mg/dL (<30); Sodium 137 mmol/L (133-145); Total Protein 7.4 g/dL (6.4-8.9)
[2017-10-05 05:45] LABS: TSH (Thyroid Stimulating Horm) 4.23 mcIU/mL (0.34-5.60)
[2017-10-05 06:10] LABS: Acetaminophen < 15 mcg/mL
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
--- NOTE | 2017-10-05 08:50 | PN ---
ED Flex Patient Progress Note Subjective: This is a 22 year-old F who is pending voluntary admission to [facility] secondary to ___depression w/ SI . Pt offers no complaints at this time. Resting comfortably and ate a sandwich while here. Objective: Vitals: General NAD, Alert and oriented x3. Heart: S1/S2, RRR Lungs: BREATHING EASILY, CTA AB: + BS, soft NTTP Assessment: Depression w/ SI Plan: Pending voluntary psychiatric admit to [facility] [place] [facility]. Will follow up daily while in ED. Vital Signs Temp Pulse Resp BP Pulse Ox 98.4 F 95 16 133/84 98 10/05/17 04:23 10/05/17 04:23 10/05/17 04:23 10/05/17 04:23 10/05/17 04:23 Lab Results - Entire Visit 10/05/17 10/05/17 10/05/17 04:40 04:40 04:40 WBC 5.2 RBC 5.11 Hgb 11.4 L Hct 36 MCV 71 L MCH 22 L MCHC 32 RDW 17 H Plt Count 242 MPV 9 Neut % (Auto) 44.2 Lymph % (Auto) 45.5 [place] % (Auto) 9.4 H Eos % (Auto) 0.6 Baso % (Auto) 0.3 Absolute Neuts (auto) 2.3 Absolute Lymphs (auto) 2.4 Absolute Monos (auto) 0.5 Absolute Eos (auto) 0 Absolute Basos (auto) 0 Absolute Nucleated RBC 0.01 Nucleated RBC % 0.2 Sodium Potassium Chloride Carbon Dioxide Anion Gap BUN Creatinine Est GFR ( Amer) Est GFR (Non-Af Amer) BUN/Creatinine Ratio Glucose Calcium Total Bilirubin AST ALT Alkaline Phosphatase Total Protein Albumin Globulin Albumin/Globulin Ratio TSH Urine Color Yellow Urine Appearance Cloudy Urine pH 7.0 Ur Specific [place] 1.023 Urine Protein 1+(30 mg/dl) H Urine Ketones Negative Urine Blood Negative Urine Nitrate Negative Urine Bilirubin Negative Urine Urobilinogen Negative Ur Leukocyte Esterase Negative Urine WBC (Auto) Trace(0-5/hpf) Urine RBC (Auto) Absent Ur Squamous Epith Cells Present H Urine Bacteria Absent Urine Glucose Negative Salicylates Urine Opiates Screen None detected Acetaminophen Ur Barbiturates Screen None detected Ur Phencyclidine Scrn None detected Ur Amphetamines Screen None detected U Benzodiazepines Scrn None detected Urine Cocaine Screen None detected U Cannabinoids Screen None detected Serum Alcohol 10/05/17 04:40 WBC RBC Hgb Hct MCV MCH MCHC RDW Plt Count MPV Neut % (Auto) Lymph % (Auto) [place] % (Auto) Eos % (Auto) Baso % (Auto) Absolute Neuts (auto) Absolute Lymphs (auto) Absolute Monos (auto) Absolute Eos (auto) Absolute Basos (auto) Absolute Nucleated RBC Nucleated RBC % Sodium 137 Potassium 3.4 L Chloride 105 Carbon Dioxide 23 Anion Gap 9 BUN 7 Creatinine 0.68 Est GFR ( Amer) 136.7 Est GFR (Non-Af Amer) 106.3 BUN/Creatinine Ratio 10.3 Glucose 105 H Calcium 8.9 Total Bilirubin 0.40 AST 16 ALT 15 Alkaline Phosphatase 83 Total Protein 7.4 Albumin 4.1 Globulin 3.3 Albumin/Globulin Ratio 1.2 TSH 4.23 Urine Color Urine Appearance Urine pH Ur Specific [place] Urine Protein Urine Ketones Urine Blood Urine Nitrate Urine Bilirubin Urine Urobilinogen Ur Leukocyte Esterase Urine WBC (Auto) Urine RBC (Auto) Ur Squamous Epith Cells Urine Bacteria Urine Glucose Salicylates < 2.50 Urine Opiates Screen Acetaminophen < 15 Ur Barbiturates Screen Ur Phencyclidine Scrn Ur Amphetamines Screen U Benzodiazepines Scrn Urine Cocaine Screen U Cannabinoids Screen Serum Alcohol < 10
[2017-10-05] MEDS: Sertraline* 25 MG TAB PO SCH (14:53)
[2017-10-05] MEDS: LORazepam TAB(*) 0.5 MG PO PRN (20:54)
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
[2017-10-06] MEDS: Sertraline* 25 MG TAB PO SCH (09:30)
--- NOTE | 2017-10-06 13:42 | PN ---
Subjective - Subjective Date of Service: 10/06/17 Service Type: 10237 Hosp care 15 min low complexity Subjective: Slept well last night attended groups today cooperative with nursing no behavioral issues compliant with medication Interveiwed patient X 15 min She reports that she met with freight team associate and found that helpful believes of uncle intensified symptoms of depression denies suicidal ideation or urges today mood: dysphoric affect: decreased range, low amplitude TP coherent TC: no psychotic symptoms endorses feeling hopeless recently, low energy, anhedonia. insight/judgment appear intact Labs: Hemeglobin 11 (low) MCV 71 (suggestive of iron deficiency) Impression: MDD recurrent severe Anemia rule out iron deficiency versus other cause (may be contributing to depression) not actively suicidal today Plan: continue zoloft/ativan at same dosages. patient would like to wait to speak with regular provider before increasing. TFT's, TIBC, Ferritin, Serum Iron, Retic count sent Plan - Plan Treatment Plan: Name: RIANA MEYER Birthdate: 1995 [id number] Medications: Current Medications
[2017-10-06 14:40] LABS: Iron 21 ug/dL (50-212); Total Iron Binding Capacity 442 mcg/dL (250-450); Transferrin 316 mg/dL (203-362)
[2017-10-06 14:49] LABS: T4 10.33 mcg/mL (6.09-12.23)
[2017-10-06 14:56] LABS: Free T4 1.44 ng/dL (0.61-1.12)
[2017-10-06] MEDS: LORazepam TAB(*) 0.5 MG PO PRN (21:44)
[2017-10-06] MEDS ORDERED: Sertraline* 25 MG TAB PO SCH (23:00)
[2017-10-07 07:47] LABS: Corrected Retic Count 0.5 % (0.5-1.5); Immature Retic Fraction 0.47; Maturation Factor Retic 1.5
[2017-10-07 07:48] LABS: Comments Flag Yes
[2017-10-07 08:14] VITALS: BP 125/77
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
== END 2017-10-07 12:20 | disposition home or self-care (01) | DRG 882 ==
LOC: EDSEX → ED 03:50 → MERGE 09:26 → BSU 09:26
PROVIDERS: ADMIT Psychiatry & Neurology Psychiatry; ATTEND Psychiatry & Neurology Psychiatry
DX: F43.10 Post-traumatic stress disorder, unspecified (principal); F33.2 Major depressive disorder, recurrent severe without psychotic features; R45.851 Suicidal ideations; R40.2412 Glasgow coma scale score 13-15, at arrival to emergency department; F41.0 Panic disorder [episodic paroxysmal anxiety]; R45.84 Anhedonia; D64.9 Anemia, unspecified; Z63.4 Disappearance and death of family member; Z91.5 Personal history of self-harm; Z72.89 Other problems related to lifestyle; Z81.1 Family history of alcohol abuse and dependence
CPT/HCPCS: 36415; 80053; 80307; 80320; 80329; 81003; 81015; 83540; 83550; 84436; 84439; 84443; 85025; 85045; 99222; 99231; 99238; A9270-GY; G0480

== ENCOUNTER 2017-10-31 11:18 | Emergency (ER) | payer OTHER, MEDICAID ==
[2017-10-31 11:27] VITALS: BP 120/70
[2017-10-31] MEDS ORDERED: Meclizine TAB* 12.5 MG PO ONE (12:07)
[2017-10-31] MEDS ORDERED: Ondansetron ODT TAB* 4 MG PO ONE (12:07)
--- NOTE | 2017-10-31 17:48 | ED ---
Richard Zhou Julia, scribed for Vishal Nesbitt MD on 10/31/17 at 1207 . Dizziness - HPI Summary HPI Summary: This patient is a 22 year old F presenting to [facility] with a chief complaint of "spinning" dizziness since yesterday. The patient rates the pain 0/10 in severity. Symptoms aggravated by head movement, especially with neck flexion and extension. Symptoms alleviated by nothing. Patient reports difficulty standing up, nausea, fatigue, diaphoresis, and visions changes described as going black. Patient denies vomiting or fever, but mentions she had a fever about two weeks ago. - History Of Current Complaint Chief Complaint: EDDizziness Stated Complaint: DIZZINESS Time Seen by Provider: 10/31/17 12:01 Hx Obtained From: Patient Onset/Duration: Still Present Timing: Constant Character: Head Spinning, Dizzy Aggravating Factor(s): Position Change - neck flexion and extension Alleviating Factor(s): Nothing Associated Signs And Symptoms: Positive: Other: - difficulty standing up, nausea , fatigue, diaphoresis, and visions changes described as going black - Allergies/Home Medications Allergies/Adverse Reactions: Allergies Allergy/AdvReac Type Severity Reaction Status Date / Time Milk-related Compounds Allergy Constipatio Verified 07/22/17 11:20 n squash Allergy Unknown Uncoded 10/07/17 03:24 Reaction Details squask Allergy Anaphylatic Uncoded 07/22/17 11:21 Shock PMH/Surg Hx/FS Hx/Imm Hx Endocrine/Hematology History: Reports: Hx Diabetes - gestational diabetes hx, Hx Thyroid Disease, Hx Anemia Cardiovascular History: Denies: Hx Hypertension Respiratory History: Denies: Hx Asthma History: Reports: Other Problems/Disorders - ovarian cyst Sensory History: Reports: Hx Contacts or Glasses - glasses Denies: Hx Hearing Aid Opthamlomology History: Reports: Hx Contacts or Glasses - glasses Psychiatric History: Reports: Hx Anxiety, Hx Eating Disorder - alternates binging and restricting, Hx Depression, Hx Panic Disorder, Hx Post Traumatic Stress Disorder, Hx Inpatient Treatment, Hx Community Mental Health Tx, Hx Suicide Attempt Denies: Hx of Violent Episodes Against Others - Surgical History Surgery Procedure, Year, and Place: none Infectious Disease History: No Infectious Disease History: Denies: Traveled Outside the [place] in Last 30 Days - Family History Known Family History: Positive: Other - Ovarian cyst Negative: Diabetes, Renal Disease - Social History Alcohol Use: None Hx Substance Use: No Substance Use Type: Reports: None Smoking Status (MU): Unknown if Ever Smoked Review of Systems Positive: Fatigue, Skin Diaphoresis. Negative: Fever Positive: Other - vision changes Positive: Nausea. Negative: Vomiting Neurological: Other - difficulty standing All Other Systems Reviewed And Are Negative: Yes Physical Exam - Summary Physical Exam Summary: Appearance: The patient is well-nourished in no acute distress and in no acute pain. Patient is fatigued Skin: The skin is warm and dry and skin color reflects adequate perfusion. HEENT: The head is normocephalic and atraumatic. The pupils are equal and reactive. The conjunctivae are clear and without drainage. Nares are patent and without drainage. Mouth reveals moist mucous membranes and the throat is without erythema and exudate. The external ears are intact. The ear canals are patent and without drainage. The tympanic membranes are intact. Patient has horizontal nystagmus with fast component to the right. Neck: the neck is supple with full range of motion and non-tender. There are no carotid bruits. There is no neck vein distension. Respiratory: Chest is non-tender. Lungs are clear to auscultation and breath sounds are symmetrical and equal. Cardiovascular: Heart is regular rate and rhythm. There is no murmur or rub auscultated. There is no peripheral edema and pulses are symmetrical and equal. Abdomen: The abdomen is soft and non-tender. There are normal bowel sounds heard in all four quadrants and there is no organomegaly palpated. Musculoskeletal: There is no back tenderness noted. Extremities are non-tender with full range of motion. There is good capillary refill. There is no peripheral edema or calf tenderness elicited. Neurological: Patient is alert and oriented to person, place and time. The patient has symmetrical motor strength in all four extremities. Cranial nerves are grossly intact. Deep tendon reflexes are symmetrical and equal in all four extremities. Psychiatric: The patient has an appropriate affect and does not exhibit any anxiety or depression. Triage Information Reviewed: Yes Vital Signs On Initial Exam: Initial Vitals Temp Pulse Resp BP Pulse Ox 97.2 F 80 16 120/70 99 10/31/17 11:23 10/31/17 11:23 10/31/17 11:23 10/31/17 11:23 10/31/17 11:23 Vital Signs Reviewed: Yes Diagnostics - Vital Signs Vital Signs Temp Pulse Resp BP Pulse Ox 10/31/17 11:23 97.2 F 80 16 120/70 99 - Laboratory Lab Statement: Any lab studies that have been ordered have been reviewed, and results considered in the medical decision making process. - EKG 11:34 Cardiac Rate: NL EKG Rhythm: Sinus Rhythm - at 70 BPM Dizzy Course/Dx - Course Course Of Treatment: Ms. Beard presented with a couple days of mild vertigo symptoms worse today. This seemed like a peripheral vertigo with fatiguing horizontal nystagmus. Her symptoms improved quickly if she stopped moving. She got a lot better with meclizine here and I will continue symptomatic treatment and recommend F/U if symptoms persist. - Diagnoses Provider Diagnoses: Peripheral vertigo Discharge - Discharge Plan Condition: Stable Disposition: HOME Prescriptions: Meclizine TAB* [Antivert 12.5 TAB*] 25 mg PO TID PRN #20 tab PRN Reason: Dizziness Ondansetron ODT TAB* [Zofran Odt TAB*] 4 mg PO Q6H PRN #20 tab.odt PRN Reason: Nausea/Vomiting Patient Education Materials: Dizziness (ED) Referrals: Moraima Crowe MD [Primary Care Provider] - Additional Instructions: RETURN TO THE EMERGENCY DEPARTMENT FOR CHANGING OR WORSENING SYMPTOMS. The documentation as recorded by the iRchard hardin Julia accurately reflects the service I personally performed and the decisions made by , Vishal Nesbitt MD.
== END 2017-10-31 14:47 | disposition home or self-care (01) ==
LOC: ED 11:18
DX: R53.83 Other fatigue (principal); R42 Dizziness and giddiness
CPT/HCPCS: 93005; 99282; A9270-GY

== ENCOUNTER 2017-12-20 18:05 | Emergency (ER) | payer OTHER, MEDICAID ==
[2017-12-20] MEDS ORDERED: Ondansetron ODT TAB* 4 MG PO ONE (19:44)
[2017-12-20] MEDS ORDERED: Acetaminophen TAB* 325 MG PO ONE (19:44)
[2017-12-20] MEDS ORDERED: Oseltamivir CAP* 75 MG CAP PO ONE (19:44)
--- NOTE | 2017-12-20 19:48 | ED ---
Influenza-Like Illness - HPI Summary HPI Summary: Patient presents with flulike symptoms. She's had a cough for about 2 weeks but over the past couple days she's developed fever, headache, aches, nausea with vomiting and her cough is moved into her chest. She has not tried anything for her symptoms yet. Immunizations are up-to-date. She has a toddler son who has had a respiratory infectionmay have obtained from him? Denies chest pain, shortness of breath, neck stiffness. - History of Current Complaint Chief Complaint: EDFluSymptoms Time Seen by Provider: 12/20/17 19:35 Hx Obtained From: Patient - Allergy/Home Medications Allergies/Adverse Reactions: Allergies Allergy/AdvReac Type Severity Reaction Status Date / Time MS Milk-related Compounds Allergy Constipatio Verified 07/22/17 11:20 [Milk-related Compounds] n squash Allergy Unknown Uncoded 10/07/17 03:24 Reaction Details squask Allergy Anaphylatic Uncoded 07/22/17 11:21 Shock PMH/Surg Hx/FS Hx/Imm Hx Previously Healthy: Yes Endocrine/Hematology History: Reports: Hx Diabetes - gestational diabetes hx, Hx Thyroid Disease, Hx Anemia Cardiovascular History: Denies: Hx Hypertension Respiratory History: Denies: Hx Asthma, Hx Chronic Obstructive Pulmonary Disease (COPD), Hx Pneumonia History: Reports: Other Problems/Disorders - ovarian cyst Sensory History: Reports: Hx Contacts or Glasses - glasses Denies: Hx Hearing Aid Opthamlomology History: Reports: Hx Contacts or Glasses - glasses Psychiatric History: Reports: Hx Anxiety, Hx Eating Disorder - alternates binging and restricting, Hx Depression, Hx Panic Disorder, Hx Post Traumatic Stress Disorder, Hx Inpatient Treatment, Hx Community Mental Health Tx, Hx Suicide Attempt Denies: Hx of Violent Episodes Against Others - Surgical History Surgery Procedure, Year, and Place: none Infectious Disease History: No Infectious Disease History: Denies: Traveled Outside the [place] in Last 30 Days - Family History Known Family History: Positive: None, Other - Ovarian cyst Negative: Diabetes, Renal Disease - Social History Occupation: Unemployed Lives: With Family Alcohol Use: None Hx Substance Use: No Substance Use Type: Reports: None Hx Tobacco Use: No Smoking Status (MU): Never Smoked Tobacco Review of Systems Positive: Fever, Chills, Fatigue Eyes: Negative Positive: Nasal Discharge Cardiovascular: Negative Positive: Cough. Negative: Shortness Of Breath Positive: Vomiting, Nausea. Negative: Abdominal Pain, Diarrhea Positive: no symptoms reported Positive: Arthralgia, Myalgia Skin: Negative Positive: Headache Psychological: Normal All Other Systems Reviewed And Are Negative: Yes Physical Exam Triage Information Reviewed: Yes Vital Signs On Initial Exam: Initial Vitals Temp Pulse Resp BP Pulse Ox 101.9 F 139 20 114/80 96 12/20/17 18:15 12/20/17 18:15 12/20/17 18:15 12/20/17 18:15 12/20/17 18:15 Vital Signs Reviewed: Yes Appearance: Positive: No Pain Distress, Ill-Appearing - appears mildly ill, Obese Skin: Positive: Warm, Skin Color Reflects Adequate Perfusion, Dry - No rash Head/Face: Positive: Normal Head/Face Inspection Eyes: Positive: Normal, EOMI, EDB, Conjunctiva Clear. Negative: Conjunctiva Inflammed, Discharge ENT: Positive: Normal ENT inspection, Hearing grossly normal, Pharynx normal - Cobblestoning, Nasal congestion - Mild, TMs normal. Negative: Nasal drainage, Trismus, Muffled voice Neck: Positive: Supple, Nontender, No Lymphadenopathy Respiratory/Lung Sounds: Positive: Clear to Auscultation, Breath Sounds Present. Negative: Rales, Rhonchi, Wheezes Cardiovascular: Positive: Tachycardia - febrile w/o meds on board, S1, S2. Negative: Murmur, Rub Abdomen Description: Positive: Nontender, No Organomegaly, Soft Bowel Sounds: Positive: Present Musculoskeletal: Positive: Normal, Strength/ROM Intact Neurological: Positive: Normal, Sensory/Motor Intact, Alert, Oriented to Person Place, Time, CN Intact II-III Psychiatric: Positive: Normal Diagnostics - Vital Signs Vital Signs Temp Pulse Resp BP Pulse Ox 12/20/17 18:15 101.9 F 139 20 114/80 96 - Laboratory Lab Results: Lab Results 12/20/17 Range/Units 18:24 Influenza A (Rapid) Positive H (Negative) Influenza B (Rapid) Negative (Negative) Lab Statement: Any lab studies that have been ordered have been reviewed, and results considered in the medical decision making process. Flu Symptom Course/Dx - Course Course Of Treatment: Influenza A pos - tachycardic w/ fever and no meds on board. Open to taking meds here today. - Diagnoses Provider Diagnoses: Influenza A Discharge - Discharge Plan Condition: Stable Disposition: HOME Prescriptions: Ondansetron ODT TAB* [Zofran 4 MG Odt TAB*] 8 mg PO Q8H PRN #10 tab.odt PRN Reason: Nausea Oseltamivir CAP* [Tamiflu CAP*] 75 mg PO BID #9 cap Patient Education Materials: Influenza (ED) Referrals: Moraima Crowe MD [Primary Care Provider] - Additional Instructions: Complete medications as directed Follow-up with PCP if symptoms linger > 14 days *if worse, return to ED You may try to the following to aid with symptom relief: Perform nasal wash/netti pot 2 x day with 8 ounces of warm water + 1/4 teaspoon of salt or saline nasal spray as needed for congestion Perform throat gargles with warm salt water as needed Sore throat, ear pain Drink 60+ ounces of water daily Sleep 8+ hours per night Avoid Dairy and sugar Drink hot herbal/decaf tea with lemon & honey Drink chicken broth (preferably organic, free range chicken) Use a humidifier in your house, but especially near bed at night. You may also keep home temperature at 68F or less. Try a facial steam with or without eucalyptus essential oil or Harley's vapor rub for decongestion. Alternate acetaminophen and aleve for fever, pain as needed - take with food Avoid smoke, candles, perfumes/colonge, air fresheners, scented lotions, etc Consider taking Vitamin D3 5,000iu and Vitamin C 1,000mg every day during illness
[2017-12-20 20:26] VITALS: BP 125/70
== END 2017-12-20 20:25 | disposition home or self-care (01) ==
LOC: ED 18:05
DX: J11.1 Influenza due to unidentified influenza virus with other respiratory manifestations (principal); R50.9 Fever, unspecified; R05 Cough; R11.2 Nausea with vomiting, unspecified; R51 Headache
CPT/HCPCS: 87502; 99282; A9270-GY

== ENCOUNTER 2018-01-05 13:10 | Emergency (ER) | payer OTHER, MEDICAID ==
[2018-01-05] MEDS ORDERED: guaiFENesin/CODIEN 100MG-10MG* 5 ML UDC PO ONE (13:14)
[2018-01-05] MEDS ORDERED: Albuterol/Ipratropium NEB.SOL* Albuterol 2.5 MG/Ipratropium 0.5 MG 3 ML INH ONE (13:14)
[2018-01-05] MEDS ORDERED: NS 0.9% 1000 ML* 1,000 ML IV ONE (13:14)
[2018-01-05 13:43] LABS: ABS Basophils 0.1 10^3/ul (0-0.2); ABS Eosinophils 0.1 10^3/ul (0-0.6); ABS Lymphocytes 2.4 10^3/ul (1.0-4.8); ABS Monocytes 0.7 10^3/ul (0-0.8); ABS Nucleated RBC 0 10^3/ul; Eosinophil % 0.9 % (0-6); Hematocrit 34 % (35-47); Hemoglobin 11.1 g/dl (12.0-16.0); Lymphocyte % 19.4 % (25-47); Mean Corpuscular HGB Conc 32 g/dl (31-36); Mean Corpuscular Hemoglobin 23 pg (27-31); Mean Corpuscular Volume 72 fL (80-97); Mean Platelet Volume 8 um3 (7.4-10.4); Nucleated Red Blood Cells % 0; Platelet Count 433 10^3/ul (150-450); Red Blood Count 4.77 10^6/ul (4.0-5.4); Red Cell Distribution Width 16 % (10.5-15); White Blood Count 12.2 10^3/ul (3.5-10.8)
[2018-01-05 13:56] LABS: EGFR Non-African American 125.2 (>60)
--- NOTE | 2018-01-05 14:24 | RAD ---
INDICATION: Cough COMPARISON: None TECHNIQUE: PA and lateral dual-energy views were obtained. FINDINGS: Bones/Soft Tissues: There are no acute bony findings. Cardiomediastinal: The cardiomediastinal silhouette is normal. Lungs: There are small right middle lobe and lingular infiltrates. Pleura: There are no pleural effusions. Other: None IMPRESSION: SMALL RIGHT MIDDLE LOBE AND LINGULAR INFILTRATES
[2018-01-05] MEDS ORDERED: Levofloxacin 750 MG IVPREMIX(* 750 MG/150 ML BAG IVPB ONE (15:03)
[2018-01-05] MEDS ORDERED: Ketorolac INJ* 30 MG/ML 1 ML VIAL IV PUSH ONE (15:03)
[2018-01-05 15:41] LABS: Urine Appearance Cloudy; Urine Blood Negative (Negative); Urine Color Yellow; Urine Ketones Negative (Negative); Urine Protein Negative (Negative); Urine Specific Gravity 1.024 (1.010-1.030); Urine Urobilinogen Negative (Negative)
[2018-01-05] MEDS ORDERED: Levofloxacin TAB* 250 MG PO ONE (17:12)
[2018-01-05 17:31] VITALS: BP 126/80
--- NOTE | 2018-01-06 08:22 | ED ---
Lisandro Zhou Angela, scribed for Tigre Matthews MD on 01/05/18 at 1320 . Respiratory - HPI Summary HPI Summary: This pt is a 22 y/o female presenting to [facility] via EMS c/o worsening cough for approximately 3 weeks. She describes a productive cough with clear and green sputum. Pt reports she was seen in the ED on 12/20/17 and was diagnosed with influenza A. She states that since then pt has been coughing. Pt additionally notes difficulty breathing, SOB, body aches, congestion and migraine headache. Denies fever, chills. She denies hx of asthma. Pt has used an inhaler at a younger age for allergies. - History of Current Complaint Stated Complaint: FLU LIKE SYMPTOMS Hx Obtained From: Patient Onset/Duration: Lasting Weeks, Still Present Timing: Constant Character: Wheezing, Cough (Productive) Sputum Amount: Small Sputum Color: Clear, Green Aggravating Factor(s): Nothing Alleviating Factor(s): Nothing Associated Signs and Symptoms: SOB, Wheezing - Allergy/Home Medications Allergies/Adverse Reactions: Allergies Allergy/AdvReac Type Severity Reaction Status Date / Time lactose Allergy Unknown Verified 01/05/18 14:24 Reaction Details PMH/Surg Hx/FS Hx/Imm Hx Endocrine/Hematology History: Reports: Hx Diabetes - gestational diabetes hx, Hx Thyroid Disease, Hx Anemia Cardiovascular History: Denies: Hx Hypertension Respiratory History: Denies: Hx Asthma, Hx Chronic Obstructive Pulmonary Disease (COPD), Hx Pneumonia History: Reports: Other Problems/Disorders - ovarian cyst Sensory History: Reports: Hx Contacts or Glasses - glasses Denies: Hx Hearing Aid Opthamlomology History: Reports: Hx Contacts or Glasses - glasses Psychiatric History: Reports: Hx Anxiety, Hx Eating Disorder - alternates binging and restricting, Hx Depression, Hx Panic Disorder, Hx Post Traumatic Stress Disorder, Hx Inpatient Treatment, Hx Community Mental Health Tx, Hx Suicide Attempt Denies: Hx of Violent Episodes Against Others - Surgical History Surgery Procedure, Year, and Place: none - Family History Known Family History: Positive: Other - Ovarian cyst Negative: Diabetes, Renal Disease - Social History Alcohol Use: None Hx Substance Use: No Substance Use Type: Reports: None Hx Tobacco Use: No Smoking Status (MU): Never Smoked Tobacco Review of Systems Negative: Fever, Chills Eyes: Negative ENT: Other - congestion Positive: Shortness Of Breath, Cough Genitourinary: Negative Positive: Myalgia Positive: Headache All Other Systems Reviewed And Are Negative: Yes Physical Exam - Summary Physical Exam Summary: VITAL SIGNS: Reviewed. GENERAL: Patient is a well-developed and nourished female who is lying comfortable in the stretcher. Patient is not in any acute respiratory distress. HEAD AND FACE: No signs of trauma. No ecchymosis, hematomas or skull depressions. No sinus tenderness. EYES: PERRLA, EOMI x 2, No injected conjunctiva, no nystagmus. EARS: Hearing grossly intact. Ear canals and tympanic membranes are within normal limits. MOUTH: Oropharynx within normal limits. NECK: Supple, trachea is midline, no adenopathy, no JVD, no carotid bruit, no c- spine tenderness, neck with full ROM. CHEST: Symmetric, no tenderness at palpation LUNGS: Pt has a little bit of wheezing. Coarse breath sounds bilaterally. CVS: Regular rate and rhythm, S1 and S2 present, no murmurs or gallops appreciated. ABDOMEN: Soft, non-tender. No signs of distention. No rebound no guarding, and no masses palpated. Bowel sounds are normal. EXTREMITIES: FROM in all major joints, no edema, no cyanosis or clubbing. NEURO: Alert and oriented x 3. No acute neurological deficits. Speech is normal and follows commands. SKIN: Dry and warm Triage Information Reviewed: Yes Vital Signs Reviewed: Yes Diagnostics - Laboratory Result Diagrams: 01/05/18 13:30 01/05/18 13:30 Lab Statement: Any lab studies that have been ordered have been reviewed, and results considered in the medical decision making process. - Radiology Chest XR Xray Interpretation: Positive (See Comments) - IMPRESSION: Small right middle lobe and lingular infiltrates. Dr. Matthews has reviewed this radiology report. Radiology Interpretation Completed By: Radiologist Disposition - Course Assessment/Plan: This pt is a 22 y/o female presenting to [facility] via EMS c/o worsening cough for approximately 3 weeks. She describes a productive cough with clear and green sputum. Pt reports she was seen in the ED on 12/20/17 and was diagnosed with influenza A. She states that since then pt has been coughing. Pt additionally notes difficulty breathing, SOB, body aches, congestion and migraine headache. Denies fever, chills. She denies hx of asthma. Pt has used an inhaler at a younger age for allergies. Test results without any significant abnormalities except for WBC of 12, slight anemia. Urinalysis is negative for UTI. Influenza A and B is negative. Chest XR: Small right middle lobe and lingular infiltrates. In the ED course the pt was given duoneb, Robitussin, Toradol for the headache, and Levaquin for the pneumonia. At this point pt will be discharged home with follow up from her PCP. Pt was given a prescription for Levaquin. Pt is hemodynamically stable, alert and oriented x3. She is instructed to return to the ED for any worsening or new symptoms. - Diagnoses Provider Diagnoses: Pneumonia Discharge - Discharge Plan Condition: Stable Disposition: HOME Prescriptions: Levofloxacin TAB* [Levaquin TAB*] 750 mg PO DAILY #9 tab Patient Education Materials: Pneumonia (ED) Referrals: Moraima Crowe MD [Primary Care Provider] - 3 Days Additional Instructions: Please follow up with your primary care provider. RETURN TO THE ED FOR ANY WORSENING SYMPTOMS. The documentation as recorded by the Lisandro hardin Angela accurately reflects the service I personally performed and the decisions made by , Tigre Matthews MD.
== END 2018-01-05 17:30 | disposition home or self-care (01) ==
LOC: ED 13:10
DX: J18.9 Pneumonia, unspecified organism (principal); R06.02 Shortness of breath; R06.2 Wheezing; R05 Cough; R51 Headache
CPT/HCPCS: 36415; 71046; 80053; 81003; 81015; 85025; 86140; 87086; 87502; 94640; 96365; 96375; 99282; A9270-GY; J1885

== ENCOUNTER 2018-09-29 17:40 | Emergency (ER) | payer OTHER ==
[2018-09-29 18:17] LABS: ABS Basophils 0.1 10^3/ul (0-0.2); ABS Eosinophils 0.1 10^3/ul (0-0.6); ABS Lymphocytes 2.3 10^3/ul (1.0-4.8); ABS Monocytes 0.6 10^3/ul (0-0.8); ABS Neutrophils 5.2 10^3/ul (1.5-7.7); ABS Nucleated RBC 0 10^3/ul; Eosinophil % 1.2 %; Hematocrit 40 % (35-47); Hemoglobin 13.2 g/dl (12.0-16.0); Lymphocyte % 27.9 %; Mean Corpuscular HGB Conc 33 g/dl (31-36); Mean Corpuscular Hemoglobin 26 pg (27-31); Mean Corpuscular Volume 77 fL (80-97); Mean Platelet Volume 9.1 fL (7.4-10.4); Nucleated Red Blood Cells % 0.2; Platelet Count 280 10^3/ul (150-450); Red Blood Count 5.18 10^6/ul (4.00-5.40); Red Cell Distribution Width 15 % (10.5-15); White Blood Count 8.3 10^3/ul (3.5-10.8)
[2018-09-29 18:46] LABS: EGFR Non-African American 109.1 (>60)
[2018-09-29 19:09] LABS: Urine Appearance Clear; Urine Blood Negative (Negative); Urine Color Yellow; Urine Ketones Negative (Negative); Urine Protein 1+(30 mg/dL) (Negative); Urine Red Blood Cell Trace(0-2/hpf) (Absent); Urine Specific Gravity 1.024 (1.010-1.030); Urine Urobilinogen Negative (Negative); Urine White Blood Cell Trace(0-5/hpf) (Absent)
--- NOTE | 2018-09-29 19:48 | ED ---
Influenza-Like Illness - HPI Summary HPI Summary: Patient complains of numbness all over her body today, left side worse than right side, symptoms worst at left knee. Patient also complains of associated feelings of lightheadedness, general weakness, cough and congestion, nausea, mild sore throat 3 days. Denies fever, nasal congestion, ear pain, headache, neck stiffness, CP, SOB, N/V/D, abdominal pain, change in urine, vaginal symptoms, body aches. Medical history is anemia and hypothyroid. - History of Current Complaint Chief Complaint: EDNeurologicalDeficit Time Seen by Provider: 09/29/18 17:48 Hx Obtained From: Patient Onset/Duration: Gradual Onset Severity: Moderate Associated Signs & Symptoms: Cough, Sore Throat - Allergy/Home Medications Allergies/Adverse Reactions: Allergies Allergy/AdvReac Type Severity Reaction Status Date / Time lactose Allergy Unknown Verified 09/29/18 18:05 Reaction Details squash Allergy Anaphylatic Verified 09/29/18 18:05 Shock Home Medications: Home Medications Multivitamin [Multiple Vitamins] 1 tab PO DAILY 09/29/18 [History Confirmed ] PMH/Surg Hx/FS Hx/Imm Hx Endocrine/Hematology History: Reports: Hx Diabetes - gestational diabetes hx, Hx Thyroid Disease, Hx Anemia Cardiovascular History: Denies: Hx Hypertension Respiratory History: Denies: Hx Asthma, Hx Chronic Obstructive Pulmonary Disease (COPD), Hx Pneumonia History: Reports: Other Problems/Disorders - ovarian cyst Sensory History: Reports: Hx Contacts or Glasses - glasses Denies: Hx Hearing Aid Opthamlomology History: Reports: Hx Contacts or Glasses - glasses Psychiatric History: Reports: Hx Anxiety, Hx Eating Disorder - alternates binging and restricting, Hx Depression, Hx Panic Disorder, Hx Post Traumatic Stress Disorder, Hx Inpatient Treatment, Hx Community Mental Health Tx, Hx Suicide Attempt Denies: Hx of Violent Episodes Against Others - Surgical History Surgery Procedure, Year, and Place: none Infectious Disease History: No Infectious Disease History: Denies: Traveled Outside the [place] in Last 30 Days - Family History Known Family History: Positive: None, Other - Ovarian cyst Negative: Diabetes, Renal Disease - Social History Alcohol Use: None Hx Substance Use: No Substance Use Type: Reports: None Hx Tobacco Use: No Smoking Status (MU): Never Smoked Tobacco Review of Systems Constitutional: Negative Eyes: Negative Positive: Sore Throat Cardiovascular: Negative Positive: Cough Positive: Nausea Genitourinary: Negative Musculoskeletal: Negative Skin: Negative Positive: Weakness, Paresthesia Psychological: Normal All Other Systems Reviewed And Are Negative: Yes Physical Exam Triage Information Reviewed: Yes Vital Signs On Initial Exam: Initial Vitals Temp Pulse Resp BP Pulse Ox 97.9 F 101 19 148/90 96 09/29/18 17:43 09/29/18 17:43 09/29/18 17:43 09/29/18 17:43 09/29/18 17:43 Vital Signs Reviewed: Yes Appearance: Positive: Well-Appearing Skin: Positive: Warm Head/Face: Positive: Normal Head/Face Inspection Eyes: Positive: Normal ENT: Positive: Normal ENT inspection Neck: Positive: Supple Respiratory/Lung Sounds: Positive: Clear to Auscultation Cardiovascular: Positive: Normal Abdomen Description: Positive: Nontender Musculoskeletal: Positive: Normal Neurological: Positive: Normal Psychiatric: Positive: Normal AVPU Assessment: Alert - Gustavo Coma Scale Best Eye Response: 4 - Spontaneous Best Motor Response: 6 - Obeys Commands Best Verbal Response: 5 - Oriented Coma Scale Total: 15 Diagnostics - Vital Signs Vital Signs Temp Pulse Resp BP Pulse Ox 09/29/18 18:50 88 115/71 09/29/18 18:49 81 105/85 09/29/18 18:46 115/71 09/29/18 17:43 97.9 F 101 19 148/90 96 - Laboratory Lab Results: Lab Results 09/29/18 09/29/18 09/29/18 Range/Units 17:58 17:58 18:02 WBC 8.3 (3.5-10.8) 10^3/ul RBC 5.18 (4.00-5.40) 10^6/ul Hgb 13.2 (12.0-16.0) g/dl Hct 40 (35-47) % MCV 77 L (80-97) fL MCH 26 L (27-31) pg MCHC 33 (31-36) g/dl RDW 15 (10.5-15) % Plt Count 280 (150-450) 10^3/ul MPV 9.1 (7.4-10.4) fL Neut % (Auto) 62.4 % Lymph % (Auto) 27.9 % [place] % (Auto) 7.7 % Eos % (Auto) 1.2 % Baso % (Auto) 0.8 % Absolute Neuts (auto) 5.2 (1.5-7.7) 10^3/ul Absolute Lymphs (auto) 2.3 (1.0-4.8) 10^3/ul Absolute Monos (auto) 0.6 (0-0.8) 10^3/ul Absolute Eos (auto) 0.1 (0-0.6) 10^3/ul Absolute Basos (auto) 0.1 (0-0.2) 10^3/ul Absolute Nucleated RBC 0 10^3/ul Nucleated RBC % 0.2 Sodium 139 (135-145) mmol/L Potassium 4.2 (3.5-5.0) mmol/L Chloride 107 (101-111) mmol/L Carbon Dioxide 27 (22-32) mmol/L Anion Gap 5 (2-11) mmol/L BUN 12 (6-24) mg/dL Creatinine 0.66 (0.51-0.95) mg/dL Est GFR ( Amer) 132.0 (>60) Est GFR (Non-Af Amer) 109.1 (>60) BUN/Creatinine Ratio 18.2 (8-20) Glucose 94 (70-100) mg/dL Calcium 9.2 (8.6-10.3) mg/dL Total Bilirubin 0.30 (0.2-1.0) mg/dL AST 22 (13-39) U/L ALT 19 (7-52) U/L Alkaline Phosphatase 97 (34-104) U/L C-Reactive Protein 6.17 (<8.01) mg/L Total Protein 7.4 (6.4-8.9) g/dL Albumin 4.2 (3.2-5.2) g/dL Globulin 3.2 (2-4) g/dL Albumin/Globulin Ratio 1.3 (1-3) TSH 2.77 (0.34-5.60) mcIU/mL Beta HCG, Quant < 0.60 mIU/mL Urine Color Urine Appearance Urine pH (5-9) Ur Specific [place] (1.010-1.030) Urine Protein (Negative) Urine Ketones (Negative) Urine Blood (Negative) Urine Nitrate (Negative) Urine Bilirubin (Negative) Urine Urobilinogen (Negative) Ur Leukocyte Esterase (Negative) Urine WBC (Auto) (Absent) Urine RBC (Auto) (Absent) Ur Squamous Epith Cells (Absent) Urine Bacteria (Absent) Urine Glucose (Negative) Urine Opiates Screen (None Detect) Ur Barbiturates Screen (None Detect) Ur Phencyclidine Scrn (None Detect) Ur Amphetamines Screen (None Detect) U Benzodiazepines Scrn (None Detect) Urine Cocaine Screen (None Detect) U Cannabinoids Screen (None Detect) Serum Alcohol < 10 (<10) mg/dL Monoscreen Negative (Negative) Influenza A (Rapid) (Negative) Influenza B (Rapid) (Negative) Group A Strep Rapid (Negative) 09/29/18 09/29/18 09/29/18 Range/Units 18:41 18:41 18:49 WBC (3.5-10.8) 10^3/ul RBC (4.00-5.40) 10^6/ul Hgb (12.0-16.0) g/dl Hct (35-47) % MCV (80-97) fL MCH (27-31) pg MCHC (31-36) g/dl RDW (10.5-15) % Plt Count (150-450) 10^3/ul MPV (7.4-10.4) fL Neut % (Auto) % Lymph % (Auto) % [place] % (Auto) % Eos % (Auto) % Baso % (Auto) % Absolute Neuts (auto) (1.5-7.7) 10^3/ul Absolute Lymphs (auto) (1.0-4.8) 10^3/ul Absolute Monos (auto) (0-0.8) 10^3/ul Absolute Eos (auto) (0-0.6) 10^3/ul Absolute Basos (auto) (0-0.2) 10^3/ul Absolute Nucleated RBC 10^3/ul Nucleated RBC % Sodium (135-145) mmol/L Potassium (3.5-5.0) mmol/L Chloride (101-111) mmol/L Carbon Dioxide (22-32) mmol/L Anion Gap (2-11) mmol/L BUN (6-24) mg/dL Creatinine (0.51-0.95) mg/dL Est GFR ( Amer) (>60) Est GFR (Non-Af Amer) (>60) BUN/Creatinine Ratio (8-20) Glucose (70-100) mg/dL Calcium (8.6-10.3) mg/dL Total Bilirubin (0.2-1.0) mg/dL AST (13-39) U/L ALT (7-52) U/L Alkaline Phosphatase (34-104) U/L C-Reactive Protein (<8.01) mg/L Total Protein (6.4-8.9) g/dL Albumin (3.2-5.2) g/dL Globulin (2-4) g/dL Albumin/Globulin Ratio (1-3) TSH (0.34-5.60) mcIU/mL Beta HCG, Quant mIU/mL Urine Color Yellow Urine Appearance Clear Urine pH 8.0 (5-9) Ur Specific [place] 1.024 (1.010-1.030) Urine Protein 1+(30 mg/dl) A (Negative) Urine Ketones Negative (Negative) Urine Blood Negative (Negative) Urine Nitrate Negative (Negative) Urine Bilirubin Negative (Negative) Urine Urobilinogen Negative (Negative) Ur Leukocyte Esterase Trace A (Negative) Urine WBC (Auto) Trace(0-5/hpf) (Absent) Urine RBC (Auto) Trace(0-2/hpf) (Absent) Ur Squamous Epith Cells Present A (Absent) Urine Bacteria Absent (Absent) Urine Glucose Negative (Negative) Urine Opiates Screen None detected (None Detect) Ur Barbiturates Screen None detected (None Detect) Ur Phencyclidine Scrn None detected (None Detect) Ur Amphetamines Screen None detected (None Detect) U Benzodiazepines Scrn None detected (None Detect) Urine Cocaine Screen None detected (None Detect) U Cannabinoids Screen None detected (None Detect) Serum Alcohol (<10) mg/dL Monoscreen (Negative) Influenza A (Rapid) Negative (Negative) Influenza B (Rapid) Negative (Negative) Group A Strep Rapid (Negative) 09/29/18 Range/Units 18:52 WBC (3.5-10.8) 10^3/ul RBC (4.00-5.40) 10^6/ul Hgb (12.0-16.0) g/dl Hct (35-47) % MCV (80-97) fL MCH (27-31) pg MCHC (31-36) g/dl RDW (10.5-15) % Plt Count (150-450) 10^3/ul MPV (7.4-10.4) fL Neut % (Auto) % Lymph % (Auto) % [place] % (Auto) % Eos % (Auto) % Baso % (Auto) % Absolute Neuts (auto) (1.5-7.7) 10^3/ul Absolute Lymphs (auto) (1.0-4.8) 10^3/ul Absolute Monos (auto) (0-0.8) 10^3/ul Absolute Eos (auto) (0-0.6) 10^3/ul Absolute Basos (auto) (0-0.2) 10^3/ul Absolute Nucleated RBC 10^3/ul Nucleated RBC % Sodium (135-145) mmol/L Potassium (3.5-5.0) mmol/L Chloride (101-111) mmol/L Carbon Dioxide (22-32) mmol/L Anion Gap (2-11) mmol/L BUN (6-24) mg/dL Creatinine (0.51-0.95) mg/dL Est GFR ( Amer) (>60) Est GFR (Non-Af Amer) (>60) BUN/Creatinine Ratio (8-20) Glucose (70-100) mg/dL Calcium (8.6-10.3) mg/dL Total Bilirubin (0.2-1.0) mg/dL AST (13-39) U/L ALT (7-52) U/L Alkaline Phosphatase (34-104) U/L C-Reactive Protein (<8.01) mg/L Total Protein (6.4-8.9) g/dL Albumin (3.2-5.2) g/dL Globulin (2-4) g/dL Albumin/Globulin Ratio (1-3) TSH (0.34-5.60) mcIU/mL Beta HCG, Quant mIU/mL Urine Color Urine Appearance Urine pH (5-9) Ur Specific [place] (1.010-1.030) Urine Protein (Negative) Urine Ketones (Negative) Urine Blood (Negative) Urine Nitrate (Negative) Urine Bilirubin (Negative) Urine Urobilinogen (Negative) Ur Leukocyte Esterase (Negative) Urine WBC (Auto) (Absent) Urine RBC (Auto) (Absent) Ur Squamous Epith Cells (Absent) Urine Bacteria (Absent) Urine Glucose (Negative) Urine Opiates Screen (None Detect) Ur Barbiturates Screen (None Detect) Ur Phencyclidine Scrn (None Detect) Ur Amphetamines Screen (None Detect) U Benzodiazepines Scrn (None Detect) Urine Cocaine Screen (None Detect) U Cannabinoids Screen (None Detect) Serum Alcohol (<10) mg/dL Monoscreen (Negative) Influenza A (Rapid) (Negative) Influenza B (Rapid) (Negative) Group A Strep Rapid Negative (Negative) Result Diagrams: 09/29/18 17:58 09/29/18 17:58 Lab Statement: Any lab studies that have been ordered have been reviewed, and results considered in the medical decision making process. Flu Symptom Course/Dx - Course Course Of Treatment: Patient complains of numbness all over her body today, left side worse than right side, symptoms worst at left knee. Patient also complains of associated feelings of lightheadedness, general weakness, cough and congestion, nausea, mild sore throat 3 days. Denies fever, nasal congestion, ear pain, headache, neck stiffness, CP, SOB, N/V/D, abdominal pain, change in urine, vaginal symptoms, body aches. Medical history is anemia and hypothyroid. Physical exam unremarkable. Vital signs within normal limits and stable. Labs unremarkable. EKG unremarkable. EKG unremarkable. Negative for flu, mono, strep. Likely viral syndrome. - Diagnoses Provider Diagnoses: Viral syndrome Discharge - Sign-Out/Discharge Documenting (check all that apply): Patient Departure - Discharge Plan Condition: Stable Disposition: HOME Patient Education Materials: Viral Syndrome (ED) Referrals: Moraima Crowe MD [Primary Care Provider] - Additional Instructions: Drink plenty of fluids. Take Tylenol or ibuprofen for body aches, fever. Follow-up with primary care. Return to the ED for any new or worsening symptoms. - Billing Disposition and Condition Condition: STABLE Disposition: Home
[2018-09-29 20:07] VITALS: BP 108/68
== END 2018-09-29 20:15 | disposition home or self-care (01) ==
LOC: ED 17:40
DX: B34.9 Viral infection, unspecified (principal); R20.0 Anesthesia of skin
CPT/HCPCS: 36415; 80053; 80307; 80320; 81003; 81015; 84443; 84702; 85025; 86140; 86308; 87086; 87651; 93005; 99283; G0480

== ENCOUNTER → 2018-11-29 23:16 | Emergency (ER) | payer OTHER ==
[~2018-11-29 23:16] MED LIST: Famotidine TAB* 20 MG PO ONE; Ketorolac INJ* 30 MG/ML 1 ML VIAL IV PUSH ONE; NS 0.9% 1000 ML** 1,000 ML IV ONE
--- NOTE | 2018-11-29 23:39 | ED ---
Abdominal Pain/Female - HPI Summary HPI Summary: Pt is a 23 y/o female brought in by EMS who presents to the ED c/o abdominal pain. She states at 20:30 she began to have burning periumbilical pain that radiates diffusely. Pt became very fatigued, near-syncopal, and nauseated, but was not able to vomit. She then had a bought of diarrhea. Pt rates the current pain as a 9/10 in severity. Earlier she states that she had a panic attack. Pt denies any hematochezia, hematemesis, or urinary symptoms. She was able to vomit once in the ambulance. She denies any abdominal surgeries, or hx of ulcers and GERD. Pt was diagnosed with Lyme disease in October 2018. She is currently menstruating, and has PCOS. - History of Current Complaint Stated Complaint: ABD PAIN Time Seen by Provider: 11/29/18 23:19 Hx Obtained From: Patient Onset/Duration: Gradual Onset, Lasting Hours - 20:30, Still Present Timing: Constant Severity Currently: Severe Pain Intensity: 9 Pain Scale Used: 0-10 Numeric Location: Umbilical Radiates: Yes Radiates to: Other - Diffuse Character: Burning Aggravating Factor(s): Nothing Alleviating Factor(s): Nothing Associated Signs and Symptoms: Positive: Nausea, Vomiting, Diarrhea. Negative: Blood in Stool, Urinary Symptoms Allergies/Adverse Reactions: Allergies Allergy/AdvReac Type Severity Reaction Status Date / Time lactose Allergy Unknown Verified 09/29/18 18:05 Reaction Details squash Allergy Anaphylatic Verified 09/29/18 18:05 Shock PMH/Surg Hx/FS Hx/Imm Hx Endocrine/Hematology History: Reports: Hx Diabetes - gestational diabetes hx, Hx Thyroid Disease, Hx Anemia Cardiovascular History: Denies: Hx Hypertension Respiratory History: Denies: Hx Asthma, Hx Chronic Obstructive Pulmonary Disease (COPD), Hx Pneumonia GI History: Denies: Hx Gastroesophageal Reflux Disease, Hx Ulcer History: Reports: Other Problems/Disorders - pcos Sensory History: Reports: Hx Contacts or Glasses - glasses Denies: Hx Hearing Aid Opthamlomology History: Reports: Hx Contacts or Glasses - glasses Psychiatric History: Reports: Hx Anxiety, Hx Eating Disorder - alternates binging and restricting, Hx Depression, Hx Panic Disorder, Hx Post Traumatic Stress Disorder, Hx Inpatient Treatment, Hx Community Mental Health Tx, Hx Suicide Attempt Denies: Hx of Violent Episodes Against Others - Surgical History Surgery Procedure, Year, and Place: none Infectious Disease History: No Infectious Disease History: Denies: Traveled Outside the [place] in Last 30 Days - Family History Known Family History: Positive: Diabetes, Other - Ovarian cyst Negative: Renal Disease - Social History Alcohol Use: None Hx Substance Use: No Substance Use Type: Reports: None Hx Tobacco Use: No Smoking Status (MU): Never Smoked Tobacco Review of Systems Positive: Fatigue Positive: Abdominal Pain, Vomiting, Diarrhea, Nausea, Other - NEGATIVE: hematochezia, hematemesis Genitourinary: Negative Positive: Syncope - Near Positive: Anxious - panic attack All Other Systems Reviewed And Are Negative: Yes Physical Exam - Summary Physical Exam Summary: Appearance: Well appearing, mild pain distress Skin: warm, dry, reflects adequate perfusion, hirsute Head/face: normal Eyes: EOMI, DEB ENT: mucous membranes moist Neck: supple, non-tender Respiratory: CTA, breath sounds present Cardiovascular: tachycardic but regular rhythm, pulses symmetrical , no LE edema Abdomen: non-tender, soft Bowel Sounds: hypoactive Musculoskeletal: normal, strength/ROM intact Neuro: normal, sensory motor intact, A&Ox3 Triage Information Reviewed: Yes Vital Signs On Initial Exam: Initial Vitals Temp Pulse Resp BP Pulse Ox 97.6 F 109 18 123/80 98 11/29/18 23:27 11/29/18 23:27 11/29/18 23:27 11/29/18 23:27 11/29/18 23:27 Vital Signs Reviewed: Yes Diagnostics - Vital Signs Vital Signs Temp Pulse Resp BP Pulse Ox 11/29/18 23:29 116 123/80 99 11/29/18 23:28 115 99 11/29/18 23:27 97.6 F 109 18 123/80 98 - Laboratory Result Diagrams: 11/29/18 23:50 11/29/18 23:50 Lab Statement: Any lab studies that have been ordered have been reviewed, and results considered in the medical decision making process. Abdominal Pain Fem Course/Dx - Course Course Of Treatment: Nurse's notes reviewed. Abdomen is soft and nontender. Patient with nausea vomiting and diarrhea with viral type gastroenteritis currently endemic in our area. Slight elevation in WBC, CRP. Again no focal tenderness, especially in the right lower quadrant or right upper quadrant. Treated here with improvement, follow closely primary care physician. - Diagnoses Differential Diagnosis: Positive: Appendicitis, Constipation, Diverticulitis, Gall Bladder Disease, Irritable Bowel Syndrome, Other - AGE Provider Diagnoses: Acute gastroenteritis Discharge - Sign-Out/Discharge Documenting (check all that apply): Patient Departure - Discharge - Discharge Plan Condition: Improved Disposition: HOME Prescriptions: Loperamide CAP* [Imodium CAP*] 2 mg PO Q4H PRN #20 cap PRN Reason: Diarrhea Ondansetron ODT TAB* [Zofran 4 MG Odt TAB*] 4 mg PO Q8H PRN #12 tab.odt PRN Reason: Nausea Patient Education Materials: Gastroenteritis (ED) Referrals: Moraima Crowe MD [Primary Care Provider] - Additional Instructions: Drink plenty of fluids. Gatorade G2 may help. Return with fever, repetitive vomiting, weakness/lightheadedness, worse or other concerns. Call your primary care physician first thing in the morning to schedule prompt follow-up. - Billing Disposition and Condition Condition: IMPROVED Disposition: Home - Attestation Statements Document Initiated by Naa: Yes Documenting Scribe: Janneth Alejandre Provider For Whom Naa is Documenting (Include Credential): Barrett Rudd MD Scribe Attestation: Janneth Zhou scribed for Barrett Rudd MD on 11/30/18 at 0137. Scribe Documentation Reviewed: Yes Provider Attestation: The documentation as recorded by the Janneth hardin accurately reflects the service I personally performed and the decisions made by me, Barrett Rudd MD Status of Scribe Document: Viewed
[2018-11-29 23:56] LABS: ABS Basophils 0 10^3/ul (0-0.2); ABS Eosinophils 0 10^3/ul (0-0.6); ABS Lymphocytes 0.8 10^3/ul (1.0-4.8); ABS Monocytes 0.7 10^3/ul (0-0.8); ABS Neutrophils 9.9 10^3/ul (1.5-7.7); ABS Nucleated RBC 0 10^3/ul; Eosinophil % 0.2 %; Hematocrit 43 % (35-47); Hemoglobin 14.1 g/dl (12.0-16.0); Mean Corpuscular HGB Conc 33 g/dl (31-36); Mean Corpuscular Hemoglobin 25 pg (27-31); Mean Corpuscular Volume 77 fL (80-97); Mean Platelet Volume 9.2 fL (7.4-10.4); Nucleated Red Blood Cells % 0.1; Platelet Count 268 10^3/ul (150-450); Red Blood Count 5.63 10^6/ul (4.00-5.40); Red Cell Distribution Width 14 % (10.5-15); White Blood Count 11.5 10^3/ul (3.5-10.8)
[2018-11-30 00:14] LABS: ALT 11 U/L (7-52); AST 14 U/L (13-39); Albumin 4.6 g/dL (3.2-5.2); Albumin/Globulin Ratio 1.2 (1-3); Alkaline Phosphatase 104 U/L (34-104); Anion Gap 13 mmol/L (2-11); BUN/Creatinine Ratio 18.9 (8-20); Blood Urea Nitrogen 14 mg/dL (6-24); C Reactive Protein 18.96 mg/L (<8.01); CO2 Carbon Dioxide 23 mmol/L (22-32); Calcium 10.1 mg/dL (8.6-10.3); Chloride 104 mmol/L (101-111); EGFR African American 115.7 (>60); EGFR Non-African American 95.6 (>60); Globulin 3.9 g/dL (2-4); Glucose 111 mg/dL (70-100); Potassium 3.8 mmol/L (3.5-5.0); Sodium 140 mmol/L (135-145); Total Protein 8.5 g/dL (6.4-8.9)
--- OUTSIDE RECORDS SUMMARY | 2018-11-30 00:15 | XMS REPORT | Continuity of Care Document ---
:1995 External Reference #:[id number] Author Name Julia Tidwell NP Address [address] [facility] [place] [address] Care Team Providers Name Role Phone Moraima Crowe Care Team Information Farm Manager Unavailable Moraima Crowe Primary Care Physician Unavailable Payers Type Date Identification Numbers Payment Provider Subscriber Effective: [facility]: [id number] [facility] Group Number: [id number] [id number] PayID: [id number] [place] [address] Effective: 2017 Policy Number: [id number] Medicaid [place] Riana Meyer PayID: [id number] [address] [facility] [place] [address] Advance Directives Description No Information Available Problems Date Description Provider Status Onset: 03/19/2018 Bronchitis Pradeep Noonan M.D. Active Onset: 03/19/2018 Acute sinusitis Pradeep Noonan M.D. Active Family History Date Family Member(s) Problem(s) Comments General Diabetes Mellitus, II maternal uncle. Father 43 Mother 41 First Son 1 Siblings 2 younger sister, and 1 younger all healthy. [place], brother. [place]. 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 Marital Status Single Lives With Son Diet vegetarian Tobacco Use Start: Unknown Never Smoked Cigarettes ETOH Use Rare 2 drink a month. Tobacco Use Start: Unknown Nonsmoker Smoking Status Reviewed: 08/02/18 Nonsmoker Exercise Exercises regularly yoga - every day in Type/Frequency school 10-15 minutes. 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 Seat Belt/Car Seat Always uses seat belt Dom Violence Screen screening has been done feels safe at home and in school. Allergies, Adverse Reactions, Alerts Date Description Reaction Status Severity Comments 05/26/2017 NKDA Active 09/22/2017 Squash Anaphylaxis Active Medications Medication Date Status Form Strength Qnty SIG Indications Ordering Provider Naproxen Sodium 11/24 Active Tablets 550mg 30tab take one by G62.9 Julia Schroeder s mouth twice Yaw, daily as CREDIT COLLECTIONS SPECIALIST needed for pain Cyanocobalamin 10/12 Active Solution 1000mcg/M 30uni inject 1ml D51.8 Anu L ts intramuscularl Maria Esther, y every 2 RURAL ELECTRIFICATION ENGINEER weeks for 2 months then monthly Vitamin D3 Active Capsules 5000Unit 1 by mouth Unknown /0000 every day Amoxicillin 10/17 Hx Capsules 500mg 66cap 1 by mouth Anu s three times a Maria Esther, - day x 22d RURAL ELECTRIFICATION ENGINEER 11/14 Doxycycline 10/08 Hx Tablets 100mg 60tab 1 by mouth A69.20 Anu Hyclate s twice a day x Maria Esther, - 30d RURAL ELECTRIFICATION ENGINEER 10/17 Medrol 08/02 Hx TBPK 4mg 1unit take dose pack M25.542 Susan s as directed Yohana Carlos, 09/03 CREDIT COLLECTIONS SPECIALIST Azithromycin 03/19 Hx Tablets 250mg 6tabs 2 by mouth J01.80 Pradeep Fisher /2017 today and 1 by Shaista, - mouth x 4 days M.D. 06/01 Meclizine HCL 02/07 Hx Tablets 12.5mg 30tab 1-2 by mouth Celina s three times a [place], - day as needed Afnp-C 06/01 nausea Wellbutrin SR 09/30 Hx Tablets 150mg 60tab take 1 by F43.23 Julia Schroeder /2016 ER 12HR s mouth twice Yaw, - daily CREDIT COLLECTIONS SPECIALIST 01/07 No Active 09/22 Hx Unknown Medications /2016 - 09/22 Lorazepam 09/22 Hx Tablets 0.5mg 30tab take 1/2 - 1 F41.9 Julia Schroeder s pill by mouth Yaw, - up to twice CREDIT COLLECTIONS SPECIALIST 01/07 daily as needed for anxiety No Active 05/26 Hx Unknown Medications /2016 - 05/26 May Return To 05/26 Hx B27.90 Moraima Moore Time. Valentin Crowe M.D. 07/26 Cipro Hx Tablets 500mg 1 by mouth Unknown /0000 twice a day - 09/21 Tamsulosin HCL Hx Capsules 0.4mg 1 by mouth Unknown /0000 every day - 09/21 Naproxen Hx Tablets 500mg 1 by mouth Unknown / twice a day - prn 09/21 Hydrocodone-Matt Hx Tablets 5-325mg 1 po q 8 hr Unknown taminophen / prn pain - 09/21 Ketorolac Hx Tablets 10mg 1 q 8 ht prn Unknown Tromethamine mod-severe - pain 09/21 Levofloxacin Hx Tablets 250mg three by mouth Unknown / daily - 01/12 Vitamin C Hx Tablets 1000mg once daily Unknown / - 11/14 D3-1000 Hx Tablets 1000Unit once daily Unknown / - 10/12 B12 Hx three times Unknown / daily - 11/14 Iron Hx Tablets 1 po qd - 11/14 Melatonin Hx Tablets 5mg 1 tab by mouth Unknown /0000 Sub at bedtime as - needed. can 11/14 keep in room /2018 and self administer. Medications Administered in Office Medication Date Status Form Strength Qnty SIG Indications Ordering Provider B-12 Injection Administered Injection Julia Tidwell NP B-12 Injection Administered Injection Moraima Crowe M.D. B-12 Injection Administered Injection Moraima Crowe M.D. B-12 Injection Administered Injection PATY Clemons Immunizations Description No Information Available Vital Signs Date Vital Result Comment 11/24/2018 11:13am BP Systolic 122 mmHg BP Diastolic 72 mmHg Heart Rate 68 /min Body Temperature 97.9 F Height 63 inches 5'3" Weight 202.00 lb BMI (Body Mass Index) 35.8 kg/m2 11/14/2018 11:01am BP Systolic 112 mmHg BP Diastolic 70 mmHg Heart Rate 76 /min Body Temperature 97.5 F Respiratory Rate 17 /min Height 63 inches 5'3" Weight 200.00 lb BMI (Body Mass Index) 35.4 kg/m2 10/12/2018 11:06am BP Systolic 128 mmHg BP Diastolic 82 mmHg Heart Rate 88 /min Body Temperature 97.9 F Height 63 inches 5'3" Weight 189.00 lb BMI (Body Mass Index) 33.5 kg/m2 10/03/2018 11:29am BP Systolic 126 mmHg BP Diastolic 66 mmHg Heart Rate 72 /min Body Temperature 97.6 F Respiratory Rate 17 /min Height 63 inches 5'3" Weight 198.50 lb BMI (Body Mass Index) 35.2 kg/m2 08/02/2018 1:03pm BP Systolic 120 mmHg BP Diastolic 70 mmHg Heart Rate 68 /min Body Temperature 98.0 F Respiratory Rate 16 /min Height 63 inches 5'3" Weight 194.00 lb BMI (Body Mass Index) 34.4 kg/m2 06/01/2018 1:51pm BP Systolic 100 mmHg BP Diastolic 58 mmHg Heart Rate 76 /min Body Temperature 97.2 F Respiratory Rate 16 /min Height 63 inches 5'3" Weight 190.25 lb BMI (Body Mass Index) 33.7 kg/m2 03/19/2018 10:20am BP Systolic 106 mmHg BP Diastolic 60 mmHg Heart Rate 108 /min Body Temperature 98.2 F Respiratory Rate 16 /min O2 % BldC Oximetry 97 % Height 63 inches 5'3" Weight 188.12 lb BMI (Body Mass Index) 33.3 kg/m2 02/09/2018 4:38pm BP Systolic 100 mmHg BP Diastolic 70 mmHg Heart Rate 90 /min Body Temperature 98.5 F Height 63 inches 5'3" Weight 188.00 lb BMI (Body Mass Index) 33.3 kg/m2 02/07/2018 11:02am BP Systolic 104 mmHg BP Diastolic 60 mmHg Heart Rate 68 /min Body Temperature 97.5 F Weight 188.00 lb 01/07/2018 3:14pm BP Systolic 118 mmHg BP Diastolic 78 mmHg Heart Rate 90 /min Body Temperature 98.9 F Respiratory Rate 16 /min O2 % BldC Oximetry 98 % Height 63 inches 5'3" Weight 185.25 lb BMI (Body Mass Index) 32.8 kg/m2 09/30/2017 7:06pm BP Systolic 122 mmHg BP Diastolic 80 mmHg Heart Rate 110 /min Body Temperature 97.9 F Respiratory Rate 16 /min Height 63 inches 5'3" Weight 193.00 lb BMI (Body Mass Index) 34.2 kg/m2 09/22/2017 10:52am BP Systolic 100 mmHg BP Diastolic 72 mmHg Heart Rate 84 /min Body Temperature 97.7 F Height 63 inches 5'3" Weight 193.00 lb BMI (Body Mass Index) 34.2 kg/m2 07/27/2017 3:55pm BP Systolic 110 mmHg BP Diastolic 60 mmHg Heart Rate 72 /min Body Temperature 98.1 F Respiratory Rate 16 /min Height 63 inches 5'3" Weight 201.00 lb BMI (Body Mass Index) 35.6 kg/m2 05/26/2017 9:07am BP Systolic 110 mmHg BP Diastolic 80 mmHg Heart Rate 76 /min Body Temperature 98.2 F Respiratory Rate 18 /min Height 63 inches 5'3" Weight 206.00 lb BMI (Body Mass Index) 36.5 kg/m2 Results Test Date Facility Test Result H/L Range Note [place], Western Blot, 10/03/2018 [facility] IgG P93 Ab. Absent 1 Serum [address] [place] [address] (607)- - IgG P66 Ab. Absent IgG P58 Ab. Absent IgG P45 Ab. Absent IgG P41 Ab. Absent IgG P39 Ab. Absent IgG P30 Ab. Absent IgG P28 Ab. Absent IgG P23 Ab. Absent IgG P18 Ab. Absent [place] IgG WB Interp. Negative 2 IgM P41 Ab. Present Abnormal IgM P39 Ab. Absent IgM P23 Ab. Present Abnormal [place] IgM WB Interp. Positive Abnormal 3 Ehrlichiosis Panel 10/03/2018 [facility] E. chaffeensis Negative Neg:<1:64 [address] [facility] ([facility]) [place] [address] (607)- - E. chaffeensis ([facility]) IgM Titer Negative Neg:<1:20 4 Hge IgG Titer Negative Neg:<1:64 5 Hge IgM Titer Negative Neg:<1:20 6 Laboratory test 10/03/2018 [facility] ([facility]) Vitamin B-12 212 pg/mL Low 230-1050 finding Free T4 1.31 ng/dL 0.75-1.54 Free T3 2.62 pg/mL 2.00-4.90 Serum Iron 41 g/dL Low 60-150 7 TSH 2.95 mIU/L 0.50-6.00 Vitamin D25 19 Low 30-100 Laboratory test 10/03/2018 [facility] Folate (Folic 18.5 ng/mL >3.0 8 finding [address] [facility] Acid), [place] [address] (607)- - Babesia Microti 10/03/2018 [facility] Babesia <1:10 Neg:<1:10 AB Panel [address] [facility] [place] [address] (607)- - Babesia microti IgG <1:10 Neg:<1:10 9 Urine Culture And 09/29/2018 [facility] Urine Culture SEE RESULT BELOW 10 Sensitivities Laboratory test finding 09/29/2018 [facility] C Reactive Protein 6.17 mg/L N < 8.01 HCG < 0.60 mIU/mL 11 Alcohol < 10 mg/dL N <10 TSH (Thyroid Stim Horm) 2.77 mcIU/mL N 0.34-5.60 Comp Metabolic Panel 09/29/2018 [facility] Sodium 139 mmol/L N 135-145 Potassium 4.2 mmol/L N 3.5-5.0 Chloride 107 mmol/L N 101-111 Co2 Carbon Dioxide 27 mmol/L N 22-32 Anion Gap 5 mmol/L N 2-11 Glucose 94 mg/dL N 70-100 Blood Urea Nitrogen 12 mg/dL N 6-24 Creatinine 0.66 mg/dL N 0.51-0.95 BUN/Creatinine Ratio 18.2 N 8-20 Calcium 9.2 mg/dL N 8.6-10.3 Total Protein 7.4 g/dL N 6.4-8.9 Albumin 4.2 g/dL N 3.2-5.2 Globulin 3.2 g/dL N 2-4 Albumin/Globulin Ratio 1.3 N 1-3 Total Bilirubin 0.30 mg/dL N 0.2-1.0 Alkaline Phosphatase 97 U/L N 34-104 Alt 19 U/L N 7-52 Ast 22 U/L N 13-39 Egfr Non- 109.1 >60 Egfr 132.0 >60 12 Urinalysis Profile 09/29/2018 [facility] Urine Color Yellow Urine Appearance Clear Urine Specific [place] 1.024 N 1.010-1.030 Urine pH 8.0 N 5-9 Urine Urobilinogen Negative Negative Urine Ketones Negative Negative Urine Protein 1+(30 mg/dL) Abnormal Negative Urine Leukocytes Trace Abnormal Negative Urine Blood Negative Negative Urine Nitrite Negative Negative Urine Bilirubin Negative Negative Urine Glucose Negative Negative Urine White Blood Cell Trace(0-5/hpf) Absent Urine Red Blood Cell Trace(0-2/hpf) Absent Urine Bacteria Absent Absent Urine Squamous Epithelial Cell Present Abnormal Absent Laboratory test finding 09/29/2018 [facility] Rapid Strep Molecular Negative Negative 13 Rapid Influenza A & B 09/29/2018 [facility] Influenza A Molecular NEGATIVE Negative 14 Molecular Influenza B Molecular NEGATIVE Negative CBC Auto Diff 09/29/2018 [facility] White Blood Count 8.3 10^3/uL N 3.5-10.8 Red Blood Count 5.18 10^6/uL N 4.00-5.40 Hemoglobin 13.2 g/dL N 12.0-16.0 Hematocrit 40 % N 35-47 Mean Corpuscular Volume 77 fL Low 80-97 Mean Corpuscular Hemoglobin 26 pg Low 27-31 Mean Corpuscular HGB Conc 33 g/dL N 31-36 Red Cell Distribution Width 15 % N 10.5-15 Platelet Count 280 10^3/uL N 150-450 Mean Platelet Volume 9.1 fL N 7.4-10.4 Abs Neutrophils 5.2 10^3/uL N 1.5-7.7 Abs Lymphocytes 2.3 10^3/uL N 1.0-4.8 Abs Monocytes 0.6 10^3/uL N 0-0.8 Abs Eosinophils 0.1 10^3/uL N 0-0.6 Abs Basophils 0.1 10^3/uL N 0-0.2 Abs Nucleated RBC 0 10^3/uL Granulocyte % 62.4 % Lymphocyte % 27.9 % Monocyte % 7.7 % Eosinophil % 1.2 % Basophil % 0.8 % Nucleated Red Blood Cells % 0.2 Urine Drug SCR ED 09/29/2018 [facility] Amphetamine Ur Screen None Detected None Detect & Pain Clinic Barbiturates Urine Screen None Detected None Detect Benzodiazepine Urine Screen None Detected None Detect Urine Cannabinoids Screen None Detected None Detect Urine Cocaine Screen None Detected None Detect Urine Opiates Screen None Detected None Detect Urine Phencyclidine Screen None Detected None Detect 15 Laboratory test finding 09/29/2018 [facility] Rapid Influenza A & B SEE RESULT BELOW 16 Antigen Rapid Strep A SEE RESULT BELOW 17 Monospot Negative Negative Rheumatoid 08/02/2018 [facility] Ra Latex <10.0 IU/mL 0.0-13.9 18 Arthritis Factor [address] [facility] ([facility] [place] [address] (607)- - Laboratory test 08/02/2018 [facility] Antinuclear Negative 19 finding [address] [facility] Antibodies, [place] [address] (607)- - Comprehensive 08/02/2018 [facility] ([facility]) Sodium 139 mEq/L 134-149 Metabolic Prof Potassium 4.1 mEq/L 3.6-5.5 Chloride 102 mEq/L 94-112 Carbon Dioxide 30 mEq/L 21-32 Glucose 85 mg/dL 70-105 BUN 11 mg/dL 6-26 Creatinine 0.7 mg/dL 0.6-1.4 BUN/Creat Ratio 15.7 CALC 8.0-36.0 Calcium 9.4 mg/dL 8.6-10.2 Total Protein 7.2 g/dL 6.4-8.3 Albumin 4.6 g/dL 3.8-5.5 Globulin 2.6 g/dL 2.0-4.8 A/G Ratio 1.8 CALC 0.6-2.3 Alk. Phosphatase 90 U/L 30-110 Alt (SGPT) 13 U/L 7-35 Ast (Sgot) 15 U/L 5-34 Total Bilirubin 0.6 mg/dL 0.2-1.3 GFR Non- >60 ml/min/1.73m^ >=60 GFR >60 ml/min/1.73m^ >=60 Laboratory test 08/02/2018 [facility] ([facility]) Free T4 1.51 ng/dL 0.75- 1.54 finding TSH 2.21 mIU/L 0.50-6.00 Laboratory test 08/02/2018 [facility] Sedimentation Rate 14mm finding (607)- - Laboratory test 08/02/2018 [facility] ([facility]) Testosterone 58.0 ng/dL High 9.0-56 20 finding .0 CBC Electronic 08/02/2018 [facility] ([facility]) WBC 6.0 4.0-10 Fma x10^3/UL .0 RBC 5.21 x10^6/UL 3.93-6.00 HGB 12.8 g/dL 12.0-17.0 HCT 40 % 35-50 MCV 76.2 fL Low 80.0-95.0 MCH 24.6 pg Low 25.6-32.2 MCHC 32.2 g/dL 32.2-36.0 RDW-CV 14.5 % High 11.6-14.4 PLT 300 x10^3/UL 163-400 MPV 10.6 fL 9.4-12.4 Michael# 3.44 x10^3/UL 1.56-6.13 Lymph# 2.03 x10^3/UL 1.18-3.74 [place]# 0.46 x10^3/UL 0.24-0.82 Eos # 0.0 x10^3/UL 0.0-0.5 Baso # 0.02 x10^3/UL 0.01-0.08 Michael% 57.4 % 34.0-70.0 Lymph % 33.9 % 20.0-52.0 [place]% 7.7 % 5.0-12.0 Eos% 0.7 % 0.7-7.0 Baso% 0.3 % 0.1-1.2 CBC Electronic a 02/07/2018 [facility] (a) WBC 5.4 x10^3/UL 4.0- 10.0 RBC 5.09 x10^6/UL 3.93-6.00 HGB 12.1 g/dL 12.0-17.0 HCT 38 % 35-50 MCV 75.4 fL Low 80.0-95.0 21 MCH 23.8 pg Low 25.6-32.2 22 MCHC 31.5 g/dL Low 32.2-36.0 23 RDW-CV 15.5 % High 11.6-14.4 PLT 304 x10^3/UL 163-400 MPV 10.2 fL 9.4-12.4 Michael# 3.16 x10^3/UL 1.56-6.13 Lymph# 1.82 x10^3/UL 1.18-3.74 [place]# 0.33 x10^3/UL 0.24-0.82 Eos # 0.0 x10^3/UL 0.0-0.5 Baso # 0.03 x10^3/UL 0.01-0.08 Michael% 58.7 % 34.0-70.0 Lymph % 33.8 % 20.0-52.0 [place]% 6.1 % 5.0-12.0 Eos% 0.6 % Low 0.7-7.0 Baso% 0.6 % 0.1-1.2 Iron And 02/07/2018 [facility] Iron Bind.Cap.(Tibc) 423 g/dL 250-450 24 Tibc [address] [place] [address] (607)- - Uibc 403 g/dL 131-425 Iron 20 g/dL Low 27-159 Iron Saturation 5 % Low 15-55 Laboratory test finding 02/07/2018 [facility] ([facility]) Ferritin 3 ng/mL Low 6-115 25 Vitamin D25 20 Low 30-100 Laboratory test 01/05/2018 [facility] Urine Culture And SEE RESULT BELOW 26 finding Sensitivities Urinalysis Profile 01/05/2018 [facility] Urine Color Yellow Urine Appearance Cloudy Urine Specific [place] 1.024 N 1.010-1.030 Urine pH 6.0 N 5-9 Urine Urobilinogen Negative Negative Urine Ketones Negative Negative Urine Protein Negative Negative Urine Leukocytes Trace Abnormal Negative Urine Blood Negative Negative * * Abnormal Negative 27 Urine Nitrite Negative Negative Urine Bilirubin Negative Negative Urine Glucose Negative Negative Urine White Blood Cell Trace(0-5/hpf) Absent Urine Red Blood Cell Trace(0-2/hpf) Absent Urine Bacteria 1+ Abnormal Absent Urine Squamous Epithelial Cell Present Abnormal Absent Rapid Influenza A & 12/20/2017 [facility] Influenza A POSITIVE Abnormal Negative 28 B Molecular Molecular Influenza B Molecular NEGATIVE Negative Urinalysis Profile 10/05/2017 [facility] Urine Color Yellow Urine Appearance Cloudy Urine Specific [place] 1.023 N 1.010-1.030 Urine pH 7.0 N 5-9 Urine Urobilinogen Negative Negative Urine Ketones Negative Negative Urine Protein 1+(30 mg/dL) Abnormal Negative Urine Leukocytes Negative Negative Urine Blood Negative Negative Urine Nitrite Negative Negative Urine Bilirubin Negative Negative Urine Glucose Negative Negative Urine White Blood Cell Trace(0-5/hpf) Absent Urine Red Blood Cell Absent Absent Urine Bacteria Absent Absent Urine Squamous Epithelial Cell Present Abnormal Absent Comp Metabolic Panel 10/05/2017 [facility] Sodium 137 mmol/L N 133-145 Potassium 3.4 mmol/L Low 3.5-5.0 Chloride 105 mmol/L N 101-111 Co2 Carbon Dioxide 23 mmol/L N 22-32 Anion Gap 9 mmol/L N 2-11 Glucose 105 mg/dL High 70-100 Blood Urea Nitrogen 7 mg/dL N 6-24 Creatinine 0.68 mg/dL N 0.51-0.95 BUN/Creatinine Ratio 10.3 N 8-20 Calcium 8.9 mg/dL N 8.6-10.3 Total Protein 7.4 g/dL N 6.4-8.9 Albumin 4.1 g/dL N 3.2-5.2 Globulin 3.3 g/dL N 2-4 Albumin/Globulin Ratio 1.2 N 1-3 Total Bilirubin 0.40 mg/dL N 0.2-1.0 Alkaline Phosphatase 83 U/L N 34-104 Alt 15 U/L N 7-52 Ast 16 U/L N 13-39 Egfr Non- 106.3 >60 Egfr 136.7 >60 29 Laboratory test finding 10/05/2017 [facility] Alcohol < 10 mg/dL N <10 Salicylate < 2.50 mg/dL <30 TSH (Thyroid Stim Horm) 4.23 mcIU/mL N 0.34-5.60 Acetaminophen < 15 g/mL 30 Iron & Iron Binding Capacity 10/05/2017 [facility] Iron 21 g/dL Low 50-212 Unsaturated Iron Binding 421 g/dL Total Iron Binding Capacity 442 g/dL N 250-450 % Iron Saturation 5 % Low 15-55 Laboratory test finding 10/05/2017 [facility] Thyroxine 10.33 g/mL N 6.09- 12.23 Free T4 (Free Thyroxine) 1.44 ng/dL High 0.61-1.12 Urine Drug SCR ED 10/05/2017 [facility] Amphetamine Ur Screen None Detected None Detect & Pain Clinic Barbiturates Urine Screen None Detected None Detect Benzodiazepine Urine Screen None Detected None Detect Urine Cannabinoids Screen None Detected None Detect Urine Cocaine Screen None Detected None Detect Urine Opiates Screen None Detected None Detect Urine Phencyclidine Screen None Detected None Detect 31 CBC Auto Diff 10/05/2017 [facility] White Blood Count 5.2 10^3/uL N 3.5-10.8 Red Blood Count 5.11 10^6/uL N 4.0-5.4 Hemoglobin 11.4 g/dL Low 12.0-16.0 Hematocrit 36 % N 35-47 Mean Corpuscular Volume 71 fL Low 80-97 Mean Corpuscular Hemoglobin 22 pg Low 27-31 Mean Corpuscular HGB Conc 32 g/dL N 31-36 Red Cell Distribution Width 17 % High 10.5-15 Platelet Count 242 10^3/uL N 150-450 Mean Platelet Volume 9 um3 N 7.4-10.4 Abs Neutrophils 2.3 10^3/uL N 1.5-7.7 Abs Lymphocytes 2.4 10^3/uL N 1.0-4.8 Abs Monocytes 0.5 10^3/uL N 0-0.8 Abs Eosinophils 0 10^3/uL N 0-0.6 Abs Basophils 0 10^3/uL N 0-0.2 Abs Nucleated RBC 0.01 10^3/uL Granulocyte % 44.2 % N 38-83 Lymphocyte % 45.5 % N 25-47 Monocyte % 9.4 % High 1-9 Eosinophil % 0.6 % N 0-6 Basophil % 0.3 % N 0-2 Nucleated Red Blood Cells % 0.2 Ua - Micro (a) 07/27/2017 [facility] Medicine Appearance CLOUDY (607)- - Color YELLOW Glucose, Urine (a/[facility]/CTX) NEG Bilirubin NEG Ketones NEG SP Grav >=1.030 Blood TRACE-INTACT # PH 7.0 Protein TRACE # Urobil 0.2 Nitrite NEG Leukocytes (a/[facility]rex) NEG Hyaline - /Lpf Granular - /Lpf WBC (a,[facility]rex) 3-4 # RBC 3-4 # Mucus - /Lpf Epith OCC /Lpf # Bacteria TRACE /Hpf # Amorphous - /Lpf Crystals, Fluid (a/[facility]/CTX) - Z#Comments - Urinalysis Profile 07/22/2017 [facility] Urine Color Yellow N Urine Appearance Clear N Urine Specific [place] 1.035 High 1.010-1.030 Urine pH 5 N 5-9 Urine Urobilinogen Negative N Negative Urine Ketones Negative N Negative Urine Protein Negative N Negative Urine Leukocytes 1+ Abnormal Negative Urine Blood 3+ Abnormal Negative Urine Nitrite Negative N Negative Urine Bilirubin Negative N Negative Urine Glucose Negative N Negative Urine White Blood Cell 3+(>20/hpf) Abnormal Absent Urine Red Blood Cell 3+(>10/hpf) Abnormal Absent Urine Bacteria Absent N Absent Urine Squamous Epithelial Cell Present Abnormal Absent Laboratory test 07/22/2017 [facility] Urine Culture And SEE RESULT 32 finding Sensitivities BELOW CBC Auto Diff 07/21/2017 [facility] White Blood Count 6.0 10^3/uL N 3.5-10.8 Red Blood Count 5.36 10^6/uL N 4.0-5.4 Hemoglobin 11.4 g/dL Low 12.0-16.0 Hematocrit 37 % N 35-47 Mean Corpuscular Volume 69 fL Low 80-97 33 Mean Corpuscular Hemoglobin 21 pg Low 27-31 Mean Corpuscular HGB Conc 31 g/dL N 31-36 Red Cell Distribution Width 17 % High 10.5-15 Platelet Count 305 10^3/uL N 150-450 Mean Platelet Volume 8 um3 N 7.4-10.4 Abs Neutrophils 3.8 10^3/uL N 1.5-7.7 Abs Lymphocytes 1.7 10^3/uL N 1.0-4.8 Abs Monocytes 0.4 10^3/uL N 0-0.8 Abs Eosinophils 0.1 10^3/uL N 0-0.6 Abs Basophils 0 10^3/uL N 0-0.2 Abs Nucleated RBC 0.01 10^3/uL N Granulocyte % 63.5 % N 38-83 Lymphocyte % 28.0 % N 25-47 Monocyte % 7.4 % N 1-9 Eosinophil % 0.9 % N 0-6 Basophil % 0.2 % N 0-2 Nucleated Red Blood Cells % 0.1 N Comp Metabolic Panel 07/21/2017 [facility] Sodium 139 mmol/L N 133-145 Potassium 3.7 mmol/L N 3.5-5.0 Chloride 104 mmol/L N 101-111 Co2 Carbon Dioxide 29 mmol/L N 22-32 Anion Gap 6 mmol/L N 2-11 Glucose 86 mg/dL N 70-100 Blood Urea Nitrogen 7 mg/dL N 6-24 Creatinine 0.68 mg/dL N 0.51-0.95 BUN/Creatinine Ratio 10.3 N 8-20 Calcium 9.3 mg/dL N 8.6-10.3 Total Protein 7.8 g/dL N 6.4-8.9 Albumin 4.3 g/dL N 3.2-5.2 Globulin 3.5 g/dL N 2-4 Albumin/Globulin Ratio 1.2 N 1-3 Total Bilirubin 0.50 mg/dL N 0.2-1.0 Alkaline Phosphatase 104 U/L N 34-104 Alt 26 U/L N 7-52 Ast 21 U/L N 13-39 Egfr Non- 106.3 N >60 Egfr 136.7 N >60 34 Laboratory test finding 07/21/2017 [facility] C Reactive Protein 10.96 mg/L High < 5.00 35 HCG 0.65 mIU/mL N 36 Urinalysis Profile 07/21/2017 [facility] Urine Color [place] N Urine Appearance Cloudy N Urine Specific [place] 1.025 N 1.010-1.030 Urine pH 5 N 5-9 Urine Urobilinogen Negative N Negative Urine Ketones Negative N Negative Urine Protein 1+(30 mg/dL) Abnormal Negative Urine Leukocytes 2+ Abnormal Negative Urine Blood 3+ Abnormal Negative Urine Nitrite Negative N Negative Urine Bilirubin Negative N Negative Urine Glucose Negative N Negative Urine White Blood Cell 2+(11-20/hpf) Abnormal Absent Urine Red Blood Cell 3+(>10/hpf) Abnormal Absent Urine Bacteria Absent N Absent Urine Squamous Epithelial Cell Present Abnormal Absent Laboratory test 07/21/2017 [facility] Urine Culture And SEE RESULT 37 finding Sensitivities BELOW Iron And Tibc 06/28/2017 [facility] Iron Bind.Cap.(Tibc) 435 g/dL 250-45 38 [address] [facility] [address] [place] [address] (607)- - Uibc 413 g/dL 131-425 Iron, Serum 22 g/dL Low 27-159 Iron Saturation 5 % Low 15-55 Complete Blood Count 06/28/2017 [facility] ([facility]) WBC 6.3 x10^3/UL 3.6-9.6 RBC 5.43 x10^6/UL 3.90-5.70 HGB 11.8 g/dL Low 12.1-17.2 HCT 38 % 36-50 39 MCV 70.0 fL Low 82.2-97.4 40 MCH 21.8 pg Low 27.6-33.3 41 MCHC 31.0 g/dL Low 33.0-35.5 RDW 17.2 % High 11.6-13.7 PLT 363 x10^3/UL 150-400 MPV 8.1 fL 7.4-10.4 Gran # 4.1 x10^3/UL 1.5-7.2 Lymph# 2.0 x10^3/UL 0.7-4.9 [place]# 0.2 x10^3/UL 0.1-0.9 Gran % 62.5 % 42.2-75.2 Lymph % 32.9 % 20.5-51.1 [place]% 4.6 % 1.7-9.3 Laboratory test 06/28/2017 Jayden Lee ([facility]) Vitamin B-12 317 pg/mL 230-1050 finding Folate Level 11.43 ng/mL 3.00-16.00 Laboratory test finding 05/26/2017 Jayden Lee (a) TSH 3.02 mIU/L 0.50-6.00 Free T4 1.10 ng/dL 0.75-1.54 Comprehensive Metabolic 05/19/2017 Carpenter Flora (a) Sodium 134 mEq/L 134-149 Prof Potassium 4.6 mEq/L 3.6-5.5 Chloride 97 mEq/L 94-112 Carbon Dioxide 22 mEq/L 21-32 Glucose 108 mg/dL High 70-105 42 BUN 10 mg/dL 6-26 Creatinine 0.7 mg/dL 0.6-1.4 BUN/Creat Ratio 14.3 CALC 8.0-36.0 Calcium 9.9 mg/dL 8.6-10.2 Total Protein 7.7 g/dL 6.4-8.3 Albumin 4.7 g/dL 3.8-5.5 Globulin 3.0 g/dL 2.0-4.8 A/G Ratio 1.6 CALC 0.6-2.3 Alk. Phosphatase 96 U/L 30-110 Alt (SGPT) 10 U/L 7-35 Ast (Sgot) 16 U/L 5-34 Total Bilirubin 0.3 mg/dL 0.2-1.3 GFR Non- >60 ml/min/1.73m^ >=60 GFR >60 ml/min/1.73m^ >=60 Lipid Profile 05/19/2017 Jayden Lee (a) Cholesterol 141 mg/dL 120- 200 Triglycerides 84 mg/dL 30-200 HDL Cholesterol 46 mg/dL 30-85 LDL (Calculated) 78 CALC 0-129 VLDL Cholesterol 17 mg/dL 0-50 HDL Risk Factor 3.1 CALC 0.0-4.4 Complete Blood Count 05/19/2017 [facility] WBC 6.7 x10^3/UL 3.6-9.6 RBC 5.21 x10^6/UL 3.90-5.70 HGB 11.3 g/dL Low 12.1-17.2 HCT 36 % 36-50 MCV 68.0 fL Low 82.2-97.4 MCH 21.8 pg Low 27.6-33.3 MCHC 31.8 g/dL Low 33.0-35.5 RDW 16.4 % High 11.6-13.7 PLT 352 x10^3/UL 150-400 MPV 7.8 fL 7.4-10.4 Gran # 4.0 x10^3/UL 1.5-7.2 Lymph# 2.3 x10^3/UL 0.7-4.9 [place]# 0.4 x10^3/UL 0.1-0.9 Gran % 58.5 % 42.2-75.2 Lymph % 35.1 % 20.5-51.1 [place]% 6.4 % 1.7-9.3 1 2SST 2 Positive: 5 of the following Borrelia-specific bands: 18,23,28,30,39,41,45,58, 66, and 93. Negative: No bands or banding patterns which do not meet positive criteria. 3 Note: An equivocal or positive EIA result followed by a negative Western Blot result is considered NEGATIVE. An equivocal or positive EIA result followed by a positive Western Blot is considered POSITIVE by the CDC. Positive: 2 of the following bands: 23,39 or 41 Negative: No bands or banding patterns which do not meet positive criteria. Criteria for positivity are those recommended by CDC/ASTPHLD. p23=Osp C, w06=phkdjfynv Note: Sera from individuals with the following may cross react in the Lyme Western Blot assays: other spirochetal diseases (periodontal disease, leptospirosis, relapsing fever, yaws, and pinta); connective autoimmune (Rheumatoid Arthritis and Systemic Lupus Erythematosus and also individuals with Antinuclear Antibody); other infections ([place] Spotted Fever; Francis-Grant Virus, and Cytomegalovirus). 4 IgG titers if 1:64 or greater indicate exposure or acute and convalescent samples showing a four-fold increase, and/or the presence of IgM indicate recent or current infection. 5 HGE IgG levels are detectable 7 to 10 days post infection and persist approximately one year. 6 Due to a reagent backorder, this test was performed using a different assay. The reference interval for this alternate assay is: Negative <1:64 Positive 1:64 or greater IgM levels usually rise 3 to 5 days post infection and fall to normal levels in approximately 30 to 60 days. 7 RESULTS VERIFIED BY REPEAT ANALYSIS 8 A serum folate concentration of less than 3.1 ng/mL is considered to represent clinical deficiency. 9 This test was developed and its performance characteristics determined by [facility]. It has not been cleared or approved by the U.S. Food and Drug Administration. The FDA has determined that such clearance or approval is not necessary. This test is used for clinical purposes. It should not be regarded as investigational or research. 10 SEE RESULT BELOW Name: RIANA MEYER : [address]: Vishal Nesbitt MD Acct: [id number] Unit: [id number] AGE: 23 Location: ED Re09/29/18 SEX: F Status: DEP ER SPEC: [id number] JORGE L: 09/29/[address]: Segundo CONWAY REQ: [id number] RECD: 09/29/18 STATUS: MERT JOHNSON DR: Moraima Crowe MD _ SOURCE: URINE SPDESC: ORDERED: Urine Culture Procedure Result Reported Site Urine Culture Final 09/30/18- 1606 ML No growth of clinically significant organisms * ML - Main Lab . END OF REPORT DEPARTMENT OF PATHOLOGY, [address] [place] [address] Brian Villanueva M.D. Director [facility] # [id number] 11 <5.0 Negative 5.0 - 25.0 Indeterminate (Repeat testing recommended after 72 hours) >25.0 Positive Perimenopausal women can display HCG levels of up to 20 mIU/mL 12 Because ethnic data is not always readily available, this report includes an eGFR for both -Americans and non- Americans. The National Kidney Disease Education Program (NKDEP) does not endorse the use of the MDRD equation for patients that are not between the ages of 18 and 70, are , have extremes of body size, muscle mass, or nutritional status, or are non- or non-. According to the National Kidney Foundation, irrespective of diagnosis, the stage of the disease is based on the level of kidney function: Stage Description GFR(mL/min/1.73 m(2)) 1 Kidney damage with normal or decreased GFR 90 2 Kidney damage with mild decrease in GFR 60-89 3 Moderate decrease in GFR 30-59 4 Severe decrease in GFR 15-29 5 Kidney failure <15 (or dialysis) 13 Chemistry Lecturer: [id number] Chemistry Lecturer: [id number] 15 The urine specimen was tested at the listed cutoffs: Drug class test level (ng/mL) Amphetamines 500 Barbiturates 200 Benzodiazepine metabolites 200 Cocaine metabolites 150 Cannabinoids 50 Opiates 300 Pcp 25 Specimen was received without chain of custody. Results should be used for medical purposes only. 16 SEE RESULT BELOW Name: RIANA MEYER : [address]: Vishal Nesbitt MD Acct: [id number] Unit: [id number] AGE: 23 Location: ED Re09/29/18 SEX: F Status: PRE ER SPEC: [id number] JORGE L: 09/29/[address]: Segundo CONWAY REQ: [id number] RECD: 09/29/18 STATUS: MERT JOHNSON DR: Vishal Crowe MD _ SOURCE: NASAL SPDESC: ORDERED: Flu A B Request Procedure Result Reported Site Rapid Influenza A B Request Final 09/29/18- 1846 ML Specimen received for Influenza A/B Molecular testing * ML - Main Lab . END OF REPORT DEPARTMENT OF PATHOLOGY, [address] [place] [address] Brian Villanueva M.D. Director [facility] # [id number] 17 SEE RESULT BELOW Name: RIANA MEYER : [address]: Vishal Nesbitt MD Acct: [id number] Unit: [id number] AGE: 23 Location: ED Re09/29/18 SEX: F Status: PRE ER SPEC: [id number] JORGE L: 09/29/18 [facility] [address]: Segundo CONWAY REQ: [id number] RECD: 09/29/18 STATUS: MERT JOHNSON DR: Vishal Crowe MD _ SOURCE: THROAT SPDESC: ORDERED: Strep A Request Procedure Result Reported Site Rapid Strep A Request Final 09/29/18- 1850 ML Specimen received for Rapid Strep A Molecular testing * ML - Main Lab . END OF REPORT DEPARTMENT OF PATHOLOGY, [address] [place] [address] Brian Villanueva M.D. Director [facility] # [id number] 18 1SST 19 Negative <1:80 Borderline 1:80 Positive >1:80 20 RESULTS VERIFIED BY REPEAT ANALYSIS 21 RESULTS VERIFIED BY REPEAT ANALYSIS 22 RESULTS VERIFIED BY REPEAT ANALYSIS 23 consistent w/ previous results 24 1 RESULTS VERIFIED BY REPEAT ANALYSIS 26 SEE RESULT BELOW Name: RIANA MEYER : [address]: Tigre Matthews MD Acct: [id number] Unit: [id number] AGE: 22 Location: ED Re01/05/18 SEX: F Status: DEP ER SPEC: [id number] JORGE L: 01/05/18-1505 [facility] [address]: Tigre Matthews MD REQ: [id number] RECD: 01/05/18-1532 STATUS: MERT JOHNSON DR: Moraima Crowe MD _ SOURCE: URINE SPDESC: ORDERED: Urine Culture Procedure Result Reported Site Urine Culture Final 01/07/18- 918 ML No growth of clinically significant organisms * ML - Main Lab . END OF REPORT DEPARTMENT OF PATHOLOGY, [address] [place] [address] Brian Villanueva M.D. Director [facility] # [id number] 27 *Ascorbic acid is present which may interfere with detection of blood. 28 Chemistry Lecturer: [id number] 29 Because ethnic data is not always readily available, this report includes an eGFR for both -Americans and non- Americans. The National Kidney Disease Education Program (NKDEP) does not endorse the use of the MDRD equation for patients that are not between the ages of 18 and 70, are , have extremes of body size, muscle mass, or nutritional status, or are non- or non-. According to the National Kidney Foundation, irrespective of diagnosis, the stage of the disease is based on the level of kidney function: Stage Description GFR(mL/min/1.73 m(2)) 1 Kidney damage with normal or decreased GFR 90 2 Kidney damage with mild decrease in GFR 60-89 3 Moderate decrease in GFR 30-59 4 Severe decrease in GFR 15-29 5 Kidney failure <15 (or dialysis) 30 Therapeutic concentration: <50 ug/mL Toxic concentration: >120 ug/mL 31 The urine specimen was tested at the listed cutoffs: Drug class test level (ng/mL) Amphetamines 500 Barbiturates 200 Benzodiazepine metabolites 200 Cocaine metabolites 150 Cannabinoids 50 Opiates 300 Pcp 25 Specimen was received without chain of custody. Results should be used for medical purposes only. 32 SEE RESULT BELOW Name: RIANA MEYER : [address]: Bautista Hughes MD Acct: [id number] Unit: [id number] AGE: 22 Location: ED Re07/22/17 SEX: F Status: DEP ER SPEC: [id number] JORGE L: 07/22/17-11[address] [facility] [address]: Bautista Hughes MD REQ: [id number] RECD: 07/22/171203 STATUS: MERT JOHNSON DR: Moraima Crowe MD _ SOURCE: URINE SPDES: ORDERED: Urine Culture Procedure Result Reported Site Urine Culture Final 07/23/17- 1424 ML No growth of clinically significant organisms * ML - MAIN LAB ([facility]) . END OF REPORT * ML=Testing performed at Main Lab DEPARTMENT OF PATHOLOGY, [address] [place] [address] Brian Villanueva M.D. Director [facility] # [id number] 33 Consistent with previous results on 05/20/17. 34 Because ethnic data is not always readily available, this report includes an eGFR for both -Americans and non- Americans. The National Kidney Disease Education Program (NKDEP) does not endorse the use of the MDRD equation for patients that are not between the ages of 18 and 70, are , have extremes of body size, muscle mass, or nutritional status, or are non- or non-. According to the National Kidney Foundation, irrespective of diagnosis, the stage of the disease is based on the level of kidney function: Stage Description GFR(mL/min/1.73 m(2)) 1 Kidney damage with normal or decreased GFR 90 2 Kidney damage with mild decrease in GFR 60-89 3 Moderate decrease in GFR 30-59 4 Severe decrease in GFR 15-29 5 Kidney failure <15 (or dialysis) 35 Acute inflammation: >10.00 36 <5.0 Negative 5.0 - 25.0 Indeterminate (Repeat testing recommended after 72 hours) >25.0 Positive Perimenopausal women can display HCG levels of up to 20 mIU/mL 37 SEE RESULT BELOW Name: RIANA MEYER : [address]: Celina Brooks MD Acct: [id number] Unit: [id number] AGE: 22 Location: ED Re07/21/17 SEX: F Status: DEP ER SPEC: [id number] JORGE L: 07/21/[address]: Celina Brooks MD REQ: [id number] RECD: 07/21/17 STATUS: MERT JOHNSON DR: Moraima Crowe MD _ SOURCE: URINE SPDESC: ORDERED: Urine Culture Procedure Result Reported Site Urine Culture Final 07/22/17- 1512 ML No growth of clinically significant organisms * ML - MAIN LAB ([facility]) . END OF REPORT * ML=Testing performed at Main Lab DEPARTMENT OF PATHOLOGY, [address] [place] [address] Brian Villanueva M.D. Director [facility] # [id number] 38 1SST 39 consistent w/ previous results 40 consistent w/ previous results 41 consistent w/ previous results 42 RESULTS VERIFIED BY REPEAT ANALYSIS Procedures Date Code Description Status 03/19/2018 30083 Pulse Oximetry Completed 05/26/2017 91475 CPHL SHQ Completed Encounters Type Date Location Provider Dx Diagnosis Office Visit 11/14/2018 Main Office PATY Tim A69.20 Lyme disease, 10:45a unspecified Office Visit 10/12/2018 Main Office PATY Tim E55.9 Vitamin D deficiency, 11:00a unspecified D51.8 Other vitamin B12 deficiency anemias A69.20 Lyme disease, unspecified Office Visit 10/03/2018 10:45a Main Office PATY Tim R53.83 Other fatigue E55.9 Vitamin D deficiency, unspecified D51.8 Other vitamin B12 deficiency anemias Office Visit 08/02/2018 1:00p [facility] Office Susan Muller 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 Midura, J01.80 Other acute M.D. sinusitis J40 Bronchitis, not specified as acute or chronic Office Visit 02/09/2018 5:00p Main Office Julia Schroeder F41.9 Anxiety disorder , Yaw, [employer] COLLE[employer] SPECIALIST unspecified F43.23 Adjustment disorder with mixed anxiety and depressed mood F43.10 Post-traumatic stress disorder, unspecified Office Visit 02/07/2018 10:45a [place] [facility] H81.399 Other peripheral Office [place], vertigo, Afnp-C unspecified ear D50.9 Iron deficiency anemia, unspecified Office Visit 01/07/2018 3:00p Main Office Susan Yohana J09.x1 Influenza due to Carlos, [employer] COLLE[employer] SPECIALIST ident novel influenza A virus w pneumonia S00.12xA Contusion of left eyelid and periocular area, init encntr Office Visit 09/30/2017 7:15p Main Office Julia Schroeder F43.23 Adjustment Yaw, [employer]EDIT COLLECTIONS SPECIALIST disorder with mixed anxiety and depressed mood Office Visit 09/22/2017 11:00a [facility] Julia Schroeder F41.9 Anxiety disorder, Yaw, [employer]EDIT [employer]LE[employer] SPECIALIST unspecified F43.23 Adjustment disorder with mixed anxiety and depressed mood Office Visit 07/27/2017 4:00p Main Office Ana Bowers, N20.2 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 general adult medical exam w/o abnormal findings F43.21 Adjustment disorder with depressed mood B27.90 Infectious mononucleosis, unspecified without complication E03.8 Other specified hypothyroidism D50.8 Other iron deficiency anemias R73.01 Impaired fasting glucose E66.3 Overweight Plan of Treatment 11/24/2018 - Julia Tidwell, NPA69.20 Lyme disease, unspecifiedComments: There is no test for cure; 3 weeks of antibiotics should be enough.D51.8 Other vitamin B12 deficiency orojduhV21.83 Other fatigueComments:* eat real food that is home cooked and based on fruits, vegetables, and whole grains as much as possible. Try to keep portion sizes small but eat every 2-3 hours* keep a consistent bedtime. Not everyone thrives on 8 hours of sleep; try to leave yourself time for 8.5 or 9 hours of sleep* (this is a hard one, but SO IMPORTANT ) get regular exercise. If not every day then try for every other day. A walk, shoveling, yoga at home, anything that helps you move your body for a sustained period of time* adda vitamin D supplement every day 1000 to 2000iu daily (we are all somewhat deficient at this latitude)* try out a light box -- usually people put them on for about 20 minutes at an indirect angle earlyin the morning. All the darkness at this time of year can really be ltvluvaM77.62 Neoplasm of uncertain behavior of left cskobrV25.9 Polyneuropathy, unspecifiedNew Medication:Naproxen Sodium 550 mg - take one by mouth twice daily as needed for painComments:follow-up neurologyAllComments:1. Patient has been queried about patient's goals/preferences and functional/lifestyle goals at relevant visits. If relevant, describe: Has been discussed, noted above2. Treatment goals as explainedto the patient: see above3. Are there barriers to meeting treatment goals? Yes If Yes, please describe: Barriers include possible insurance limits, disease process, and difficulty with lifestyle changes4. Self-Management goals as described to the patient: Yes, see above As always, we strongly encourage a healthy diet and making physical activity a part of your every day life. If you have questions about how or where to start, please contact the office.
[2018-11-30 00:20] LABS: HCG Pregnancy < 0.60 mIU/mL
[2018-11-30 01:21] VITALS: BP 107/73
== END | disposition home or self-care (01) ==
LOC: ED 23:16
DX: K52.9 Noninfective gastroenteritis and colitis, unspecified (principal)
CPT/HCPCS: 36415; 80053; 83605; 83690; 84702; 85025; 86140; 96374; 99282; A9270-GY; J1885

== ENCOUNTER 2019-12-09 11:44 | Emergency (ER) | payer MEDICAID ==
--- OUTSIDE RECORDS SUMMARY | 2019-12-09 11:54 | XMS REPORT | Continuity of Care Document ---
:1995 External Reference #:[id number] Author Name Myron Mcwilliams MD (transmitted by agent of provider Makenna Jeter) Address [address] [place] [id number] Care Team Providers Name Role Phone Charline Gardner NP - Family Care Team Information Computer Trainer Moraima Crowe MD - Internal Care Team Information Computer Trainer [phone] Medicine Problems Description No Information Available Social History Type Date Description Comments Sex Unknown ETOH Use Rarely consumes alcohol Tobacco Use Start: Unknown Patient has never smoked Recreational Drug Use Sporadically uses for pain and Marijuana insomnia Smoking Status Reviewed: 10/31/19 Patient has never smoked Exercise Type/Frequency Exercises regularly yoga, stretching. Allergies, Adverse Reactions, Alerts Active Allergies Reaction Severity Comments Date Doxycycline manic symptoms 10/31/2019 Inactive Allergies NKDA 08/03/2018 Medications Active Medications SIG Qnty Indications Ordering Provider Date Sleep Tincture 1 dropper full Unknown CBD Oil as needed Unknown Pain Tincture 1 dropper full Unknown daily Naproxen Sodium 1 by mouth twice a Unknown 550mg day prn Tablets Vitamin D3 Ultra 1 by mouth every Unknown Strength day 5000Unit Capsules Acetaminophen-Codeine Take One Tablet By Unknown #3 Mouth Every 6 300-30mg Tablets Hours as Needed For Cough - May Take 2 Tablets as 1 Dose AT Bedtime - Maximum Daily Dose Of 5 Per Day Ventolin HFA Take 1 To 2 Puffs Unknown 108(90Base) By Mouth Every 4 mcg/Act Aerosol Hours as Needed For Wheezing Or Tightness In Chest Levothyroxine Sodium Take 1/2 Tablet By Unknown Mouth Every 50mcg Tablets Morning For 1 Week, Then Increase as Tolerated To 1 Tablet Daily Zinc 0nce daily Unknown 50mg Tablets Vitamin B6 1 by mouth every Unknown 50mg Tablets day Vitamin B12 1 by mouth every Unknown 500mcg day Tablets Vitamin C ER 1 by mouth every Unknown 500mg day Capsules ER Immunizations Description No Information Available Vital Signs Date Vital Result Comment 10/31/2019 2:41pm Height 63 inches 5'3" Weight 213.00 lb Heart Rate 92 /min BP Systolic 123 mmHg BP Diastolic 86 mmHg Body Temperature 97.3 F Pain Level 8 O2 % BldC Oximetry 97 % BMI (Body Mass Index) 37.7 kg/m2 03/07/2019 10:24am Height 63 inches 5'3" Weight 200.00 lb Heart Rate 78 /min BP Systolic Sitting 120 mmHg BP Diastolic Sitting 88 mmHg Respiratory Rate 16 /min Body Temperature 97.8 F BMI (Body Mass Index) 35.4 kg/m2 Results Description No Information Available Procedures Description No Information Available Medical Devices Description No Information Available Encounters Description No Information Available Assessments Date Code Description Provider 10/31/2019 F43.10 Post-traumatic stress disorder, unspecified Myron Mcwilliams MD 10/31/2019 M79.7 Fibromyalgia Myron Mcwilliams MD 10/31/2019 A69.20 Lyme disease, unspecified Myron Mcwilliams MD 10/31/2019 E03.9 Hypothyroidism, unspecified Myron Mcwilliams MD 10/31/2019 R53.83 Other fatigue Myron Mcwilliams MD 10/31/2019 M25.551 Pain in right hip Myron Mcwilliams MD 10/31/2019 M25.562 Pain in left knee Myron Mcwilliams MD Plan of Treatment 10/31/2019 - Myron Mcwilliams MDF43.10 Post-traumatic stress disorder, unspecifiedFollow up:3-4 vmjrglT82.7 FibromyalgiaComments:-Medications to consider in the future include Cymbalta or Effexor for their pain amplification defeating qualities-Considering a sleep study at some point in the wvurnsK78.20 Lyme disease, jdzrqabznjuK95.9 Hypothyroidism, kenzxqyzymiH48.83 Other fatigueReferral:[facility], Sleep Disord,Diag/PzzbnaH50.551 Pain in right hipM25.562 Pain in left knee Functional Status Description No Information Available Mental Status Description No Information Available Referrals Refer to Reason for Referral Status Appt Date [facility] Patient with history of fatigue and sleep Created 00/00/ 0000 paralysis, please eval and treat for consideration of sleep apnea [address] [place], [place] [address] [phone]
--- OUTSIDE RECORDS SUMMARY | 2019-12-09 11:54 | XMS REPORT | Continuity of Care Document ---
:1995 External Reference #:[id number] Author Name Moraima Crowe M.D. Address [address] [place] [address] Care Team Providers Name Role Phone Moraima Crowe - Family Medicine Care Team Information Youth Coordinator Godwin Truong MD - Infectious Care Team Information Youth Coordinator [phone] [facility] - Physical Care Team Information Youth Coordinator Therapist Problems Active Problems Provider Date Bronchitis Pradeep Noonan M.D. Onset: 03/19/2018 Acute sinusitis Pradeep Noonan M.D. Onset: 03/19/2018 Social History Type Date Description Comments Sex Unknown Tobacco Use Start: Unknown Never Smoked Cigarettes ETOH Use Rare 2 drink a month. Tobacco Use Start: Unknown Nonsmoker Smoking Status Reviewed: 08/29/19 Nonsmoker Exercise Exercises regularly yoga - every day in Type/Frequency school 10-15 minutes. 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 Seat Belt/Car Seat Always uses seat belt Allergies, Adverse Reactions, Alerts Active Allergies Reaction Severity Comments Date Squash Anaphylaxis 09/22/2017 Lactose 05/09/2019 Seasonal 08/10/2019 Valium makes pt angry Severe 11/15/2019 Inactive Allergies NKDA 05/26/2017 Medications Active Medications SIG Qnty Indications Ordering Provider Date Ventolin HFA take 1-2 puffs 18gm J06.9 Moraima Chacon 08/10/2019 108(90Base) inhaled every 4 Jesus Crowe mcg/Act Aerosol hours as needed for wheezing or tightness in the chest Vitamin D3 1 by mouth every Unknown 5000Unit day Capsules Zinc 1 po qhs Unknown 50mg Tablets Vitamin B-Complex 1 by mouth every Unknown day Tablets Vitamin C 100MG once a day Unknown Levothyroxine Sodium 1 by mouth every Unknown day 50mcg Tablets History Medications Acetaminophen-Codeine #3 take one by 20tabs J06.9 Julia Schroeder 08/10/2019 - 300-30mg mouth every 6 MONAE Tidwell 11/07/2019 Tablets hours as needed for cough. may take 2 as one dose at bedtime. Benzonatate take one by 30caps J06.9 Julia Schroeder 08/10/2019 - 200mg Capsules mouth 3 times MONAE Tidwell 11/07/2019 daily as needed for cough Medications Administered in Office Medication SIG Qnty Indications Ordering Provider Date B-12 Injection Julia Tidwell NP 11/24/2018 Injection Injection Subcutaneous Or Julia Tidwell NP 11/24/2018 Intramuscular Injection B-12 Injection Moraima Crowe M.D. 11/10/2018 Injection B-12 Injection Moraima Crowe M.D. 10/26/2018 Injection B-12 Injection PATY Tim 10/12/2018 Injection Immunizations Description No Information Available Vital Signs Date Vital Result Comment 11/15/2019 12:13pm BP Systolic 116 mmHg BP Diastolic 60 mmHg Heart Rate 78 /min Body Temperature 98.1 F Respiratory Rate 16 /min Height 63 inches 5'3" Weight 211.38 lb BMI (Body Mass Index) 37.4 kg/m2 11/07/2019 1:23pm BP Systolic 130 mmHg BP Diastolic 80 mmHg Heart Rate 78 /min Body Temperature 97.9 F Respiratory Rate 12 /min Height 63 inches 5'3" Weight 211.00 lb BMI (Body Mass Index) 37.4 kg/m2 Results Test Acquired Date Facility Test Result H/L Range Note Ua - Micro (Fma) 08/29/2019 [facility] Appearance clear (607)- - Color yellow Glucose, Urine (Fma/CMC/CTX) neg Bilirubin neg Ketones neg SP Grav 1.025 Blood neg PH 6.0 Protein neg Urobil 0.2 Nitrite neg Leukocytes (Fma/CMC/Centrex) neg Hyaline - /Lpf Granular - /Lpf WBC (Fma,Centrex) - RBC - Mucus (Fma/CBC/Centrex) - /Lpf Epith - /Lpf Bacteria - /Hpf Amorphous (Fma/CMC/Centrex) - /Lpf Crystals, Fluid (Fma/CMC/CTX) - Z#Comments - Flu A&B (Fma) 08/29/2019 [facility] Influenza A negative (607)- - Influenza B negative Comprehensive Metabolic 07/25/2019 [facility](a) Sodium 137 mEq/L 134-149 Prof Potassium 4.4 mEq/L 3.6-5.5 Chloride 99 mEq/L 94-112 Carbon Dioxide 25 mEq/L 21-32 Glucose 100 mg/dL 70-105 BUN 11 mg/dL 6-26 Creatinine 0.7 mg/dL 0.6-1.4 BUN/Creat Ratio 15.7 CALC 8.0-36.0 Calcium 9.5 mg/dL 8.6-10.2 Total Protein 7.6 g/dL 6.4-8.3 Albumin 4.6 g/dL 3.8-5.5 Globulin 3.0 g/dL 2.0-4.8 A/G Ratio 1.5 CALC 0.6-2.3 Alk. Phosphatase 87 U/L 30-110 Alt (SGPT) 13 U/L 7-35 Ast (Sgot) 15 U/L 5-34 Total Bilirubin 0.7 mg/dL 0.2-1.3 GFR Non- >60 ml/min/1.73m^ >=60 GFR >60 ml/min/1.73m^ >=60 Lipid Profile 07/25/2019 [facility]) Cholesterol 161 mg/dL 120- 200 Triglycerides 80 mg/dL 30-200 HDL Cholesterol 45 mg/dL 30-85 LDL (Calculated) 100 CALC 0-129 VLDL Cholesterol 16 mg/dL 0-50 HDL Risk Factor 3.6 CALC 0.0-4.4 CBC Electronic a 07/25/2019 [facility](a) WBC 6.2 x10^3/UL 4.0- 10.0 RBC 5.01 x10^6/UL 3.93-6.00 HGB 12.7 g/dL 12.0-17.0 HCT 40 % 35-50 MCV 80.0 fL 80.0-95.0 MCH 25.3 pg Low 25.6-32.2 MCHC 32.2 g/dL 32.2-36.0 RDW-CV 13.9 % 11.6-14.4 PLT 271 x10^3/UL 163-400 MPV 10.5 fL 9.4-12.4 Michael# 3.74 x10^3/UL 1.56-6.13 Lymph# 1.86 x10^3/UL 1.18-3.74 [place]# 0.51 x10^3/UL 0.24-0.82 Eos # 0.1 x10^3/UL 0.0-0.5 Baso # 0.02 x10^3/UL 0.01-0.08 Michael% 60.5 % 34.0-70.0 Lymph % 30.1 % 20.0-52.0 [place]% 8.3 % 5.0-12.0 Eos% 0.8 % 0.7-7.0 Baso% 0.3 % 0.1-1.2 Procedures Date Code Description Status 08/10/2019 38907 Pulse Oximetry Completed 06/20/2019 55288 Electrocardiogram Complete Completed Medical Devices Description No Information Available Encounters Type Date Location Provider Dx Diagnosis Office Visit 11/07/2019 [facility] Moraima Chacon E06.3 Autoimmune 1:10p Jesus Crowe thyroiditis R07.89 Other chest pain E66.3 Overweight Office Visit 08/29/2019 10:30a Main Office Celina R50.9 Fever, unspecified [place], Afnp-C Office Visit 08/10/2019 11:15a [place] Julia Schroeder J06.9 Acute upper Office MONAE Tidwell respiratory infection, unspecified Office Visit 06/20/2019 3:30p Main Office Susan Muller N39.41 Urge incontinence MONAE Carlos A69.20 Lyme disease, unspecified R07.9 Chest pain, unspecified N63.20 Unspecified lump in the left breast, unspecified quadrant Assessments Date Code Description Provider 11/15/2019 N39.0 Urinary tract infection, site not Moraima Crowe M.D. specified 11/07/2019 E06.3 Autoimmune thyroiditis Moraima Crowe M.D. 11/07/2019 R07.89 Other chest pain Moraima Crowe M.D. 11/07/2019 E66.3 Overweight Moraima Crowe M.D. 08/29/2019 R50.9 Fever, unspecified Celina Arriaza, Afnp-C 08/10/2019 J06.9 Acute upper respiratory infection, Julia Tidwell, MONAE unspecified 07/25/2019 Z00.00 Encounter for general adult medical Moraima Crowe M.D. examination without abnormal findings 06/20/2019 N39.41 Urge incontinence Susan Carlos, MONAE 06/20/2019 A69.20 Lyme disease, unspecified Susan Carlos, MONAE 06/20/2019 R07.9 Chest pain, unspecified Susan Carlos, MONAE 06/20/2019 N63.20 Unspecified lump in the left breast, Susan Carlos, MONAE unspecified quadrant Plan of Treatment Future Appointment(s):11/28/2019 1:40 pm - Moraima Crowe M.D. at [facility]uk[facility]0711/15/2019 - Moraima Crowe M.D.N39.0 Urinary tract infection, site not specifiedNew Labs:Ua - Micro (Fma), Ordered: 11/15/19Urine C &S (CMC/Centrex), Ordered: 11/15/19Comments:Urine is normal. No uti. just keep well hydrated.AllComments:Medication Management Patient Understands medications she 's taking? Yes No Are there Barriers to Adherence? Yes No Has the patient been asked about herbal supplements and therapies, and OTC meds? Yes No Care Plan1. Patient has been queried about patient's goals/preferences and functional/lifestyle goals at relevant visits. If relevant, describe: na2. Treatment goals as explained to the patient: above3. Are there barriers to meeting treatment goals? Yes No If Yes, please describe:4. Self-Management goals as described to the patient: Yes No Functional Status Description No Information Available Mental Status Description No Information Available Referrals Refer to Reason for Referral Status Appt Date Irving Murrell MD fibro? chronic lyme? jw Scheduled 09/21/2019 [address], [place] [address] [phone] [facility] PHYSICAL THERAPY evaluate and treat Scheduled urge incontinence [address] [place] [address] [phone]
--- NOTE | 2019-12-09 12:01 | ED ---
Influenza-Like Illness - HPI Summary HPI Summary: Pt is a 24 y/o F presenting to the ED brought in by EMS for a flu-like illness. EMS states for about 6 days she has had flu-like symptoms, characterized by dizziness, near-syncope, fever, productive cough, and sore throat. - History of Current Complaint Chief Complaint: EDDizziness Hx Obtained From: Patient, EMS Onset/Duration: Gradual Onset, Lasting Days, Still Present Severity: Moderate Associated Signs & Symptoms: Fever, Cough, Sore Throat - Allergy/Home Medications Allergies/Adverse Reactions: Allergies Allergy/AdvReac Type Severity Reaction Status Date / Time lactose Allergy Unknown Verified 03/17/19 13:30 Reaction Details squash Allergy Anaphylatic Verified 03/17/19 13:30 Shock PMH/Surg Hx/FS Hx/Imm Hx Previously Healthy: Yes Endocrine/Hematology History: Reports: Hx Diabetes - gestational diabetes hx, Hx Thyroid Disease, Hx Anemia Cardiovascular History: Denies: Hx Hypertension Respiratory History: Denies: Hx Asthma, Hx Chronic Obstructive Pulmonary Disease (COPD), Hx Pneumonia GI History: Denies: Hx Gastroesophageal Reflux Disease, Hx Ulcer History: Reports: Other Problems/Disorders - pcos Sensory History: Reports: Hx Contacts or Glasses - glasses Denies: Hx Hearing Aid Opthamlomology History: Reports: Hx Contacts or Glasses - glasses Psychiatric History: Reports: Hx Anxiety, Hx Eating Disorder - alternates binging and restricting, Hx Depression, Hx Panic Disorder, Hx Post Traumatic Stress Disorder, Hx Inpatient Treatment, Hx Community Mental Health Tx, Hx Suicide Attempt Denies: Hx of Violent Episodes Against Others - Surgical History Surgery Procedure, Year, and Place: none Infectious Disease History: No Infectious Disease History: Denies: Traveled Outside the [place] in Last 30 Days - Family History Known Family History: Positive: Diabetes, Other - Ovarian cyst Negative: Renal Disease - Social History Alcohol Use: None Hx Substance Use: No Substance Use Type: Reports: None Hx Tobacco Use: No Smoking Status (MU): Never Smoked Tobacco Review of Systems Positive: Fever Positive: Sore Throat Positive: Cough Neurological: Other - dizziness Positive: Syncope - near All Other Systems Reviewed And Are Negative: Yes Physical Exam - Summary Physical Exam Summary: VITAL SIGNS: Reviewed. GENERAL: Patient is a well-developed and nourished female who is lying comfortable in the stretcher. Patient is not in any acute respiratory distress. HEAD AND FACE: No signs of trauma. No ecchymosis, hematomas or skull depressions. No sinus tenderness. EYES: PERRLA, EOMI x 2, No injected conjunctiva, no nystagmus. EARS: Hearing grossly intact. Ear canals and tympanic membranes are within normal limits. MOUTH: Oral mucosa is dry. There is mild pharyngeal erythema. NECK: Supple, trachea is midline, no adenopathy, no JVD, no carotid bruit, no c- spine tenderness, neck with full ROM. CHEST: Symmetric, no tenderness at palpation. LUNGS: Clear to auscultation bilaterally. No wheezing or crackles. CVS: Regular rate and rhythm, S1 and S2 present, no murmurs or gallops appreciated. ABDOMEN: Soft, non-tender. No signs of distention. No rebound, no guarding, and no masses palpated. Bowel sounds are normal. EXTREMITIES: FROM in all major joints, no edema, no cyanosis or clubbing. NEURO: Alert and oriented x 3. No acute neurological deficits. Speech is normal and follows commands. SKIN: Dry and warm. Triage Information Reviewed: Yes Vital Signs On Initial Exam: Initial Vitals Temp Pulse Resp BP Pulse Ox 98.1 F 81 16 116/87 97 12/09/19 11:48 12/09/19 11:48 12/09/19 11:48 12/09/19 11:48 12/09/19 11:48 Vital Signs Reviewed: Yes Procedures - Sedation Patient Received Moderate/Deep Sedation with Procedure: No Diagnostics - Vital Signs Vital Signs Temp Pulse Resp BP Pulse Ox 12/09/19 11:48 98.1 F 81 16 116/87 97 - Laboratory Lab Statement: Any lab studies that have been ordered have been reviewed, and results considered in the medical decision making process. Flu Symptom Course/Dx - Course Assessment/Plan: Pt is a 24 y/o F presenting to the ED brought in by EMS for a flu-like illness. EMS states for about 6 days she has had flu-like symptoms, characterized by dizziness, near-syncope, fever, productive cough, and sore throat. In the ED course the patient was placed in a market development trainer, IV access was obtained, IV fluids started and she was given Zofran for Nausea. Rapid strep is negative, influenza A is negative, influenza B is positive. In the ED course the patient was given IV fluids for rehydration and Zofran for nausea and vomiting. The patient would not benefit from Tamiflu at this time since the symptoms have been present for more than 6 days. At this point the patient is feeling better the patient will be given a prescription for Zofran and will follow with PCP. I discussed all the findings and test results with the patient. Patient was instructed to return to the emergency room immediately if any of the symptoms return worsens. Plan of care was discussed with the patient and understands and agrees. All questions were answered at patient satisfaction. There were no further complaints or concerns. Lung exam before discharge: CTA B/L. Good air exchange. No wheezing or crackles heard. CVS: S1 and S2 present. No murmurs appreciated. Patient is alert and oriented x 3. Patient is hemodynamically stable. Patient will be discharged home with follow up PCP in the next 2-3 days - Diagnoses Differential Diagnosis/HQI/PQRI: Positive: Bronchitis, Influenza, Upper Respiratory Infection Provider Diagnoses: Influenza Discharge ED - Sign-Out/Discharge Documenting (check all that apply): Patient Departure - Discharge Plan Condition: Stable Disposition: HOME Patient Education Materials: Influenza (ED) Referrals: Moraima Crowe MD [Primary Care Provider] - Additional Instructions: Follow up with your primary care provider within the next 1-3 days. Return to the emergency department with any new or worsening symptoms. - Billing Disposition and Condition Condition: STABLE Disposition: Home - Attestation Statements Document Initiated by Naa: Yes Documenting Scribe: Natasha Arellano Provider For Whom Naa is Documenting (Include Credential): Tigre Matthews MD. Scribe Attestation: Natasha Zhou scribed for Tigre Matthews MD. on 12/09/19 at 1855. Scribe Documentation Reviewed: Yes Provider Attestation: The documentation as recorded by the Natasha hardin accurately reflects the service I personally performed and the decisions made by , Tigre Matthews MD. Status of Scribe Document: Viewed
[2019-12-09 13:29] LABS: Rapid Strep Molecular Negative (Negative)
[2019-12-09 13:31] LABS: Influenza B Molecular POSITIVE (Negative)
[2019-12-09] MEDS ORDERED: Ondansetron INJ* 2 MG/ML VIAL IV ONE (13:52)
[2019-12-09] MEDS ORDERED: NS 0.9% 1000 ML** 1,000 ML IV ONE (13:52)
[2019-12-09 15:09] VITALS: BP 115/69
== END 2019-12-09 15:10 | disposition home or self-care (01) ==
LOC: ED 11:44
DX: J11.1 Influenza due to unidentified influenza virus with other respiratory manifestations (principal); E07.9 Disorder of thyroid, unspecified; D64.9 Anemia, unspecified; F41.9 Anxiety disorder, unspecified; F43.10 Post-traumatic stress disorder, unspecified
CPT/HCPCS: 87651; 96374; 99282; J2405